=== PATIENT | male | born 1950 | race Two or more races ===

== ENCOUNTER 2019-09-13 19:01 | Emergency (ER) | payer BC ==
[~2019-09-13] VITALS: Ht 180.3 cm; Wt 90.7 kg
[2019-09-13] MEDS ORDERED: ACETAMINOPHEN ES 500 MG TABLET ONE (19:28)
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
[2019-09-13] MEDS ORDERED: ACETAMINOPHEN ES 500 MG TABLET PO ONE (19:30)
--- NOTE | 2019-09-13 19:33 | NUR ---
MD AT BEDSIDE FOR EXTENDED FOCUSED ASSESSMENT WITH SONOGRAPHY FOR TRAUMA.
--- NOTE | 2019-09-13 19:40 | NUR ---
RADIOLOGY AT BEDSIDE TO TAKE PATIENT TO CT.
--- NOTE | 2019-09-13 20:05 | NUR ---
RETURNED FROM CT.
[2019-09-13 21:11] VITALS: BP 111/59
--- NOTE | 2019-09-13 21:11 | NUR ---
Patient discharged to home in stable condition. Written and verbal after care instructions given. Patient verbalizes understanding of instruction.
--- NOTE | 2019-09-13 21:11 | NUR ---
PATIENT'S WOUND CLEANED.
== END 2019-09-13 21:12 | disposition home or self-care (01) ==
LOC: ER 19:03
DX: S00.81XA Abrasion of other part of head, initial encounter (principal); E11.9 Type 2 diabetes mellitus without complications; I10 Essential (primary) hypertension; Z95.818 Presence of other cardiac implants and grafts; Z88.0 Allergy status to penicillin; V49.49XA Driver injured in collision with other motor vehicles in traffic accident, initial encounter; Y93.89 Activity, other specified; Y92.413 State road as the place of occurrence of the external cause; Y99.8 Other external cause status
CPT/HCPCS: 70450; 72110; 72125; 76604; 76705; 93308; 99285; A6403

== ENCOUNTER 2020-01-02 09:41 | Emergency (ER) | payer OTHER ==
[~2020-01-02] VITALS: Ht 170.2 cm; Wt 83.9 kg
[2020-01-02] MEDS ORDERED: HYDROCODONE/APAP 5/325MG TABLET PO ONE (10:00)
[2020-01-02] MEDS ORDERED: HYDROCODONE/APAP 5/325MG TABLET ONE (10:06)
--- NOTE | 2020-01-02 10:30 | NUR ---
Pt encouraged to DBE/splint with movement -able to control activity slowly. Discussed and reiterated plan of care
--- NOTE | 2020-01-02 11:25 | NUR ---
Pt able to move/ambulate slowly. For discharge- Patient discharged to home in stable condition. Written and verbal after care instructions given. Patient verbalizes understanding of instruction.
[2020-01-02 11:26] VITALS: BP 142/71
[2020-01-10] MEDS ORDERED: PANT40TA49 PO (08:11)
[2020-01-10] MEDS ORDERED: RANO10005 PO (08:30)
== END 2020-01-02 11:27 | disposition home or self-care (01) ==
LOC: ER 09:50
DX: S32.038A Other fracture of third lumbar vertebra, initial encounter for closed fracture (principal); I10 Essential (primary) hypertension; E11.9 Type 2 diabetes mellitus without complications; Z95.4 Presence of other heart-valve replacement; Z88.0 Allergy status to penicillin; W18.39XA Other fall on same level, initial encounter; Y93.89 Activity, other specified; Y92.89 Other specified places as the place of occurrence of the external cause; Y99.8 Other external cause status
CPT/HCPCS: 72131-TC

== ENCOUNTER 2020-01-09 17:57 | Inpatient (IN) | payer BC, OTHER ==
[~2020-01-09] VITALS: Ht 177.8 cm; Wt 86.8 kg
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
[2020-01-09] MEDS ORDERED: LORAZEPAM 0.5 MG TABLET ONE (19:29)
[2020-01-09] MEDS ORDERED: LORAZEPAM 0.5 MG TABLET PO ONE (19:30)
--- NOTE | 2020-01-09 19:30 | NUR ---
PT REC'D MEDICATION ORDERED.
--- NOTE | 2020-01-09 20:26 | NUR ---
PT APPEARS CONFUSED. PT STATED THAT HIS PAIN IS STILL IN HIS RT HIP AND RT KNEE. PT WAS ON THE PHONE WITH HIS SISTER, DESHAUN AND HIS ROOMMATE, JUNE. PT ALLOWED BOTH TO BE UPDATED ON HIS CONDITION.
--- NOTE | 2020-01-09 20:27 | NUR ---
CALL DESHAUN, PT'S SISTER, ( PER PT) WITH UPDATES AT CALL JUNE, PT'S ROOMMATE/CAREGIVER, ( PER PT) WITH UPDATES AT
--- NOTE | 2020-01-09 20:45 | NUR ---
CALLING PT'S SISTER, DESHAUN, WITH UPDATE.
--- NOTE | 2020-01-09 20:46 | NUR ---
CALLING PT'S ROOM MATE, JUNE, WITH UPDATE.
--- NOTE | 2020-01-09 20:55 | NUR ---
TURNED IN MOVE SHEET AND CLINICALS
[2020-01-09] MEDS ORDERED: MORPHINE SULFATE INJ 2 MG/ML DISP.SYRIN IV ONE (21:00)
[2020-01-09] MEDS ORDERED: MORPHINE SULFATE INJ 4 MG/ML DISP.SYRIN ONE (21:05)
--- NOTE | 2020-01-09 21:15 | NUR ---
MILL OPERATOR IS AT THE BEDSIDE.
--- NOTE | 2020-01-09 21:15 | NUR ---
ANGEL LUIS CHPROJECT ACCOUNT MANAGER FOR INSURANCE.
[2020-01-09 21:18] LABS: BASOPHILS # (AUTO) 0.1 /CMM (0.0-0.2); BASOPHILS % (AUTO) 0.7 % (0.0-2.0); EOSINOPHILS % (AUTO) 1.7 % (0.0-6.0); HEMATOCRIT 52 % (39-51); HEMOGLOBIN 17.1 g/dL (13.5-17.5); LYMPHOCYTES # (AUTO) 3.3 /CMM (0.8-4.8); LYMPHOCYTES % (AUTO) 30.1 % (20.0-44.0); MEAN CORPUSCULAR HGB CONC 33 g/dl (31.0-36.0); MEAN CORPUSCULAR VOLUME 91 fL (80-96); MONOCYTES # (AUTO) 1.2 /CMM (0.1-1.30); MONOCYTES % (AUTO) 10.6 % (2.0-12.0); NEUTROPHILS # (AUTO) 6.3 /CMM (1.8-8.9); NEUTROPHILS % (AUTO) 56.9 % (43.0-81.0); PLATELET COUNT (AUTO) 256 /CMM (150-450); RED BLOOD CELL COUNT(AUTO) 5.66 MIL/uL (4.5-6.0); WHITE BLOOD COUNT (AUTO) 11.1 K/uL (4.3-11.0)
[2020-01-09 21:37] LABS: BILIRUBIN,DIRECT 0.3 mg/dL (0.0-0.2); BILIRUBIN,TOTAL 1.7 mg/dL (0.2-1.0); CALCIUM, SERUM 9.6 mg/dL (8.5-10.1); POTASSIUM 5.3 mmol/L (3.5-5.1); TOTAL PROTEIN, SERUM 7.6 g/dL (6.4-8.2)
--- NOTE | 2020-01-09 22:08 | NUR ---
MARCELO IS AT THE BEDSIDE ASSISTING PT WITH THE URINAL.
--- NOTE | 2020-01-09 22:32 | NUR ---
PT WAS ON THE PHONE AND TALKING TO HIS ROOMMATE, JUNE. I SPOKE TO JUNE AND GAVE HIM AN UPDATE.
--- NOTE | 2020-01-09 22:36 | NUR ---
BED ASSIGNMENT 310-1
--- NOTE | 2020-01-09 22:38 | NUR ---
CALLING REPORT TO MS NURSE. ANGEL LUIS VILLASEÑOR
--- NOTE | 2020-01-09 22:43 | NUR ---
CALLING PT'S ROOM MATE WITH AN UPDATE.
--- NOTE | 2020-01-09 22:46 | NUR ---
JUNE WILL CALL 3 WEST IN AN HOUR WITH THE PT'S MED LIST. JUNE IS NOT AT HOME AT THIS TIME.
--- NOTE | 2020-01-09 22:49 | NUR ---
CALLING PT'S SISTER, DESHAUN, WITH AN UPDATE
[2020-01-09 22:50] VITALS: BP 125/67
--- NOTE | 2020-01-09 22:50 | NUR ---
MS RN ADMITTING NOTES RECEIVED PT FROM ER VIA [facility] IN STABLE CONDITION. PT A/O X3 WITH PERIODS OF CONFUSION. RESPIRATIONS EVEN AND UNLABORED WITH NO S/S OF ACUTE DISTRESS OR SOB NOTED. NO COMPLAINTS OF PAIN AT THIS TIME. PT NOTED WITH RWRIST #20G PATENT AND INTACT. ORIENTED PT TO ROOM AND STAFF. SAFETY MEASURES IN PLACE WITH BED IN LOWEST LOCKED POSITION WITH SIDE RAILS UP X2. CALL LIGHTS WITHIN REACH. WILL CONTINUE TO MONITOR.
[2020-01-09] MEDS ORDERED: ZOLPIDEM TARTRATE 5 MG TABLET PO PRN (23:00)
[2020-01-09] MEDS ORDERED: Z GUARD REMEDY 2 OZ OINT TP PRN (23:00)
[2020-01-09] MEDS ORDERED: DEXTROSE 50%-WATER 50 ML DISP.SYRIN IV PRN (23:00)
[2020-01-09] MEDS ORDERED: HYDROCODONE/APAP 5/325MG 1 EACH TABLET PO PRN (23:00)
[2020-01-09] MEDS ORDERED: ONDANSETRON HCL/PF 4 MG/2 ML VIAL IVP PRN (23:00)
[2020-01-09] MEDS ORDERED: HYDROCODONE/APAP 10/325MG 1 EA TABLET PO PRN (23:00)
--- NOTE | 2020-01-09 23:00 | NUR ---
MS RN NOTES PT REFUSED TO HAVE WALLET TO BE LOCKED UP AT THIS TIME. WILL CONTINUE TO MONITOR.
[2020-01-10] MEDS: IV NS 0.9% 1,000 ML IV PRN ×2 (00:06→16:53)
[2020-01-10] MEDS: MORPHINE SULFATE INJ 2 MG/ML DISP.SYRIN IV PRN ×3 (00:17→12:57)
[2020-01-10] MEDS: MAG HYDROX/AL HYDROX/SIMETH 30 ML UDC PO PRN (00:51)
--- NOTE | 2020-01-10 01:00 | NUR ---
MS RN NOTES JUNE DID NOT CALL WITH PT'S MED LIST. WILL ENDORSE TO MORNING SHIFT. WILL CONTINUE TO MONITOR.
[2020-01-10 06:46] LABS: BASOPHILS % (AUTO) 0.3 % (0.0-2.0); EOSINOPHILS % (AUTO) 1.7 % (0.0-6.0); HEMATOCRIT 50 % (39-51); HEMOGLOBIN 16.7 g/dL (13.5-17.5); LYMPHOCYTES % (AUTO) 30.7 % (20.0-44.0); MEAN CORPUSCULAR HGB CONC 34 g/dl (31.0-36.0); MEAN CORPUSCULAR VOLUME 91 fL (80-96); MONOCYTES # (AUTO) 1.1 /CMM (0.1-1.30); MONOCYTES % (AUTO) 11.6 % (2.0-12.0); NEUTROPHILS # (AUTO) 5.5 /CMM (1.8-8.9); NEUTROPHILS % (AUTO) 55.7 % (43.0-81.0); PLATELET COUNT (AUTO) 247 /CMM (150-450); RED BLOOD CELL COUNT(AUTO) 5.49 MIL/uL (4.5-6.0); WHITE BLOOD COUNT (AUTO) 9.8 K/uL (4.3-11.0)
--- NOTE | 2020-01-10 06:58 | NUR ---
MS RN NOTES PT IN BED AWAKE AND ABLE TO MAKE NEEDS KNOWN. PT A/O X3 WITH PERIODS OF CONFUSION. RESPIRATIONS EVEN AND UNLABORED WITH NO S/S OF ACUTE DISTRESS OR SOB NOTED THROUGHOUT SHIFT. NO COMPLAINTS OF PAIN AT THIS TIME. PT NOTED WITH RWRIST #20G PATENT AND INTACT. SAFETY MEASURES IN PLACE WITH BED IN LOWEST LOCKED POSITION WITH SIDE RAILS UP X2. CALL LIGHTS WITHIN REACH. WILL ENDORSE TO ONCOMING NURSE FOR HIWOT.
[2020-01-10 06:59] LABS: THYROID STIMULATING HORMONE 0.624 uIU/mL (0.358-3.74)
[2020-01-10 07:02] LABS: CALCIUM, SERUM 8.9 mg/dL (8.5-10.1); MAGNESIUM 1.8 mg/dL (1.8-2.4); PHOSPHORUS 2.3 mg/dL (2.5-4.9); POTASSIUM 4.7 mmol/L (3.5-5.1)
[2020-01-10] MEDS: BLOOD SUGAR DIAGNOSTIC 1 EACH STRIP IN SCH ×4 (07:03→22:09)
[2020-01-10 07:53] LABS: CREATININE, URINE 62.8 MG/DL (30.0-125.0)
[2020-01-10 08:00] VITALS: BP 139/64
[2020-01-10] MEDS ORDERED: METF-442 PO (08:11)
[2020-01-10] MEDS ORDERED: OXYC5TAB3 PO (08:11)
[2020-01-10] MEDS ORDERED: AMLO10TA7 PO (08:11)
[2020-01-10] MEDS ORDERED: TRAZ-252 PO (08:11)
[2020-01-10] MEDS ORDERED: CARV3.122 PO (08:11)
[2020-01-10] MEDS ORDERED: TRAM50TA2 PO (08:11)
[2020-01-10] MEDS ORDERED: ZOLP10TA2 PO (08:11)
[2020-01-10] MEDS ORDERED: APIX5TAB PO (08:11)
[2020-01-10] MEDS ORDERED: LISI40TA4 PO (08:11)
[2020-01-10] MEDS ORDERED: SOTA80TA PO (08:11)
[2020-01-10] MEDS ORDERED: INSU200I4 SQ (08:11)
[2020-01-10] MEDS ORDERED: ATOR10TA PO (08:11)
[2020-01-10] MEDS ORDERED: ALPR0.5T8 PO (08:11)
[2020-01-10] MEDS ORDERED: PANT40TA4 PO (08:11)
[2020-01-10] MEDS ORDERED: GABA-532 PO (08:30)
[2020-01-10] MEDS ORDERED: ISOS60TA4 PO (08:30)
[2020-01-10] MEDS ORDERED: SENN-261 PO (08:30)
[2020-01-10] MEDS ORDERED: RANO10004 PO (08:30)
[2020-01-10] MEDS ORDERED: METH500T7 PO (08:30)
[2020-01-10] MEDS ORDERED: CLOP75TA15 PO (08:30)
[2020-01-10] MEDS ORDERED: HYDR-4354 PO (08:30)
[2020-01-10] MEDS ORDERED: MELA3TAB41 PO (08:30)
[2020-01-10] MEDS ORDERED: GLIM4TAB37 PO (08:30)
[2020-01-10] MEDS ORDERED: ENOXAPARIN SODIUM 40 MG/0.4 ML DISP.SYRIN SQ SCH (09:00)
[2020-01-10] MEDS: PANTOPRAZOLE 40 MG TABLET.DR PO SCH ×2 (10:34→13:30)
[2020-01-10] MEDS ORDERED: NEUTRA PHOS 1 POWD.PACKET PO ONE (11:00)
[2020-01-10] MEDS: INSULIN REGULAR, HUMAN 100 UNIT/ML 3 ML VIAL SQ PRN ×3 (12:45→22:10)
[2020-01-10] MEDS ORDERED: SENNOSIDES 8.6 MG TABLET PO SCH (13:30)
[2020-01-10] MEDS ORDERED: TRAZODONE 50 MG TABLET PO SCH (13:30)
[2020-01-10] MEDS ORDERED: SOTALOL HCL 80 MG TABLET PO SCH (13:30)
[2020-01-10] MEDS ORDERED: Medication Not On Formulary EA (Melatonin 3 MG) PO SCH (13:30)
[2020-01-10] MEDS ORDERED: ALPRAZOLAM 0.5 MG TABLET PO PRN (13:30)
[2020-01-10] MEDS ORDERED: HYDROCODONE/APAP 10/325MG 1 EA TABLET PO PRN (13:30)
[2020-01-10] MEDS: GLIMEPIRIDE 4 MG TABLET PO SCH ×2 (13:30→18:02)
[2020-01-10] MEDS: LISINOPRIL (20MG) 20 MG TABLET PO SCH (14:00)
--- NOTE | 2020-01-10 14:00 | NUR ---
neutra phos given for low phosphorous level.
[2020-01-10] MEDS: METHOCARBAMOL (500MG) 500 MG TABLET PO SCH ×2 (14:48→17:00)
[2020-01-10] MEDS: CLOPIDOGREL BISULFATE 75 MG TABLET PO SCH (14:48)
[2020-01-10] MEDS: CARVEDILOL 3.125 MG TABLET PO SCH ×2 (14:48→16:57)
[2020-01-10] MEDS: GABAPENTIN 100 MG CAPSULE PO SCH ×2 (14:48→17:00)
[2020-01-10] MEDS: AMLODIPINE BESYLATE 10 MG TABLET PO SCH (14:49)
[2020-01-10 16:00] VITALS: BP 137/77
[2020-01-10] MEDS: RANOLAZINE 500 MG TAB.ER.12H PO SCH (17:00)
[2020-01-10] MEDS ORDERED: ISOSORBIDE MONONITRATE 60 MG TAB.SR.24H PO SCH (18:00)
--- NOTE | 2020-01-10 18:00 | NUR ---
med. x 2with morphine and one time with norco for low back pain.at approximately 1600,heart rate low,iv infusing,some meds to be held due to low heart rate,pt. still cont. to ask for pain med,but then doses off to sleep.
[2020-01-10] MEDS: METFORMIN 500 MG TABLET PO SCH (18:03)
[2020-01-10] MEDS: ATORVASTATIN 10 MG TABLET PO SCH (18:03)
--- NOTE | 2020-01-10 19:00 | NUR ---
heart rate at this time ranges between 45-50.
--- NOTE | 2020-01-10 19:05 | NUR ---
MS RN NOTES RECEIVED PT IN BED AWAKE AND ABLE TO MAKE NEEDS KNOWN. PT A/O X3 WITH PERIODS OF CONFUSION. RESPIRATIONS EVEN AND UNLABORED WITH NO S/S OF ACUTE DISTRESS OR SOB NOTED. NO COMPLAINTS OF PAIN AT THIS TIME. PT NOTED WITH RWRIST #20G PATENT AND INTACT INFUSING NS @75CC/HR. SAFETY MEASURES IN PLACE WITH BED IN LOWEST LOCKED POSITION WITH SIDE RAILS UP X2. CALL LIGHTS WITHIN REACH. WILL CONTINUE TO MONITOR.
[2020-01-10 20:00] VITALS: BP 131/68
--- NOTE | 2020-01-10 20:35 | NUR ---
MS RN NOTES PT NOTED WITH DECREASED HR, MD MADE AWARE NO NEW ORDERS, JUST CONTINUE TO MONITOR. PT ALSO NOTED WITH PAIN IN RIGHT KNEE, MD MADE AWARE, NO NEW ORDERS, JUST CONTINUE PAIN MANAGEMENT. WILL CONTINUE TO MONITOR.
[2020-01-10] MEDS: APIXABAN 5 MG TABLET PO SCH (20:38)
[2020-01-10] MEDS: ACETAMINOPHEN 325 MG TABLET PO PRN (22:09)
[2020-01-10] MEDS: SENNOSIDES 8.6 MG TABLET PO SCH (22:09)
[2020-01-10] MEDS: TRAZODONE 50 MG TABLET PO SCH (22:09)
--- NOTE | 2020-01-10 22:56 | NUR ---
MS RN NOTES RECEIVED PT IN BED AWAKE AND ABLE TO MAKE NEEDS KNOWN. PT A/O X3 WITH PERIODS OF CONFUSION. RESPIRATIONS EVEN AND UNLABORED WITH NO S/S OF ACUTE DISTRESS OR SOB NOTED. NO COMPLAINTS OF PAIN AT THIS TIME. PT NOTED WITH RWRIST #20G PATENT AND INTACT INFUSING NS @75CC/HR. SAFETY MEASURES IN PLACE WITH BED IN LOWEST LOCKED POSITION WITH SIDE RAILS UP X2. CALL LIGHTS WITHIN REACH. WILL CONTINUE TO MONITOR. Addendum: 01/10/20 at 2257 by ANGEL SOTO RN WRONG TIME.
[2020-01-11] MEDS: HYDROCODONE/APAP 10/325MG 1 EA TABLET PO PRN ×2 (00:41→20:05)
[2020-01-11] MEDS: IV NS 0.9% 1,000 ML IV PRN ×2 (03:47→17:50)
[2020-01-11] MEDS: INSULIN REGULAR, HUMAN 100 UNIT/ML 3 ML VIAL SQ PRN ×3 (06:31→23:02)
[2020-01-11] MEDS: BLOOD SUGAR DIAGNOSTIC 1 EACH STRIP IN SCH ×4 (06:31→23:03)
[2020-01-11 06:55] LABS: CALCIUM, SERUM 8.6 mg/dL (8.5-10.1); CREATININE 0.9 mg/dL (0.6-1.3); PHOSPHORUS 2.1 mg/dL (2.5-4.9); POTASSIUM 4.3 mmol/L (3.5-5.1)
--- NOTE | 2020-01-11 07:00 | NUR ---
MS RN OPENING NOTES RECEIVED PT AWAKE IN BED AT THIS TIME. A/O X3 . PT ABLE TO MAKE NEEDS KNOWN. NO SOB NOTED. NO S/S OF ANY ACUTE DISTRESS, NO C/O PAIN AT THIS TIME. RESPIRATIONS EVEN AND UNLABORED . IV ACCESS IN RWRIST G#20 INTACT, PATENT AND INFUSING NS @75ML/HR. SAFETY PRECAUTIONS IN PLACE.BED IN LOWEST LOCKED POSITION, HOB ELEVATED TO SEMI FOWLERS POSITION, SIDE RAILS UP X2, BED ALARM ON, CALL LIGHTS WITHIN REACH. WILL CONTINUE TO MONITOR.
[2020-01-11] MEDS: PANTOPRAZOLE 40 MG TABLET.DR PO SCH ×2 (07:30→08:19)
[2020-01-11 08:00] VITALS: BP 132/67
[2020-01-11 09:00] LABS: MAGNESIUM 1.7 mg/dL (1.8-2.4); THYROID STIMULATING HORMONE 0.444 uIU/mL (0.358-3.74); URIC ACID 5.3 mg/dL (2.6-7.2)
[2020-01-11] MEDS: LISINOPRIL (20MG) 20 MG TABLET PO SCH (09:04)
[2020-01-11] MEDS: METFORMIN 500 MG TABLET PO SCH ×2 (09:04→17:17)
[2020-01-11] MEDS: METHOCARBAMOL (500MG) 500 MG TABLET PO SCH ×2 (09:04→12:47)
[2020-01-11] MEDS: CLOPIDOGREL BISULFATE 75 MG TABLET PO SCH (09:05)
[2020-01-11] MEDS: GABAPENTIN 100 MG CAPSULE PO SCH ×3 (09:05→17:17)
[2020-01-11] MEDS: AMLODIPINE BESYLATE 10 MG TABLET PO SCH (09:05)
[2020-01-11] MEDS: GLIMEPIRIDE 4 MG TABLET PO SCH ×2 (09:05→17:17)
[2020-01-11] MEDS: MORPHINE SULFATE INJ 2 MG/ML DISP.SYRIN IV PRN (09:06)
[2020-01-11] MEDS: CARVEDILOL 3.125 MG TABLET PO SCH ×2 (09:06→17:18)
[2020-01-11] MEDS: APIXABAN 5 MG TABLET PO SCH ×2 (09:08→17:19)
[2020-01-11] MEDS: RANOLAZINE 500 MG TAB.ER.12H PO SCH ×2 (09:55→17:21)
--- NOTE | 2020-01-11 11:00 | NUR ---
DOCTOR BAIN REQUESTED TO GET CONSULT FROM DOCTOR LIMON AT THIS TIME. ORDERS CARRIED OUT. UNABLE TO REACH DOCTOR LIMON BY PHONE AT THIS TIME. WILL FOLLOW UP AND CONTINUE TO MONITOR
[2020-01-11] MEDS: MAG HYDROX/AL HYDROX/SIMETH 30 ML UDC PO PRN (11:11)
--- NOTE | 2020-01-11 11:11 | NUR ---
PT C/O OF BLOATING. ABD ASSESSED, NON TENDER AND ACTIVE BOWEL SOUNDS PRESENT. MAALOX SUSP UDC 30ML PO Q6HRS PRN ADMINISTERED. WILL CONTINUE TO MONITOR
[2020-01-11] MEDS ORDERED: K PHOS NEUTRAL 250 MG TABLET PO ONE (12:00)
--- NOTE | 2020-01-11 12:30 | NUR ---
DOCTOR BAIN REQUESTED TO GET NEUROLOGY EVAL CONSULT FROM DOCTOR LIMON. ORDERS CARRIED OUT. UNABLE TO REACH DOCTOR LIMON BY PHONE AT THIS TIME. LINDSEY, CHARGE NURSE AND DOCTOR BAIN MADE AWARE. WILL CONTINUE TO FOLLOW UP AND CONTINUE WITH PLAN OF CARE
[2020-01-11 16:00] VITALS: BP 109/66
--- NOTE | 2020-01-11 17:50 | NUR ---
PER DOCTOR BAIN, DO A BLADDER SCAN TO CHECK POSTVOID RESIDUAL. PATIENT VOIDED 200ML OUTPUT, POSTVOID BLADDER SCAN PERFOREMED PER ORDER, AND SCAN SHOWS 69ML. WILL CONTINUE TO MONITOR
[2020-01-11] MEDS: ATORVASTATIN 10 MG TABLET PO SCH (18:26)
[2020-01-11] MEDS: ISOSORBIDE MONONITRATE (30MG) 30 MG TAB.SR.24H PO SCH (18:26)
--- NOTE | 2020-01-11 18:46 | NUR ---
MS RN CLOSING NOTES PT AWAKE IN BED AND EATING AT THIS TIME. A/O X3 . PT REMAINED STABLE THROUGHOUT SHIFT. ALL CARE, NEEDS, TREATMENT AND MEDICATIONS ADMINISTERED ANTICIPATED PER ODER. SAFETY PRECAUTIONS IN PLACE. BED IN LOWEST LOCKED POSITION, HOB ELEVATED TO SEMI FOWLERS POSITION, SIDE RAILS UP X2, BED ALARM ON, CALL LIGHTS WITHIN REACH. WILL ENDORSE TO FULL ROLL INSPECTOR NURSE FOR HIWOT
--- NOTE | 2020-01-11 19:30 | NUR ---
MS RN PM OPENEING NOTES BEDSIDE REPORT RECIEVED FROM IMMMACULATE RN. PT AWAKE IN BED IN NO APPARENT DISTRESS. A/O X3 WITH HX OF FORGETFULNESS. PT ASKING IF WE CAN CALL SOMEONE TO HELP HIM WRITE A COMPOSITION. REORIENTED TO ENVIRONMENT AND POC. SAFETY PRECAUTIONS IN PLACE. BED IN LOWEST LOCKED POSITION, HOB ELEVATED TO SEMI FOWLERS POSITION, SIDE RAILS UP X2, BED ALARM ON, CALL LIGHTS WITHIN REACH. PT VERBALIZED UNDERSTANDING TO CALL FOR ASSISTANCE IF NEEDED. WILL CONT TO MONITOR.
[2020-01-11 20:00] VITALS: BP 104/63
[2020-01-11] MEDS: MAGNESIUM HYDROXIDE 30 ML UDC PO PRN (20:04)
[2020-01-11] MEDS: SENNOSIDES 8.6 MG TABLET PO SCH (23:02)
[2020-01-11] MEDS: TRAMADOL HCL 50 MG TABLET PO PRN (23:03)
[2020-01-11] MEDS: TRAZODONE 50 MG TABLET PO SCH (23:03)
[2020-01-12] MEDS: HYDROCODONE/APAP 10/325MG 1 EA TABLET PO PRN ×2 (00:07→12:35)
[2020-01-12] MEDS: ZOLPIDEM TARTRATE 10 MG TABLET PO PRN ×2 (01:28→21:47)
[2020-01-12] MEDS: BLOOD SUGAR DIAGNOSTIC 1 EACH STRIP IN SCH ×4 (06:13→21:12)
[2020-01-12] MEDS: IV NS 0.9% 1,000 ML IV PRN ×2 (06:18→21:46)
--- NOTE | 2020-01-12 06:27 | NUR ---
MS RN PM CLOSING NOTES PT AWAKENED TO VOICE IN BED IN NO APPARENT DISTRESS. REPORTED SOME GOOD SLEEP LAST NIGHT. BS CHECKED AND IS 92. A/O X3 WITH HX OF FORGETFULNESS. DENIES PAIN AT THIS TIME. SAFETY PRECAUTIONS IN PLACE. BED IN LOWEST LOCKED POSITION, HOB ELEVATED TO SEMI FOWLERS POSITION, SIDE RAILS UP X2, BED ALARM ON, CALL LIGHTS WITHIN REACH. PT VERBALIZED UNDERSTANDING TO CALL FOR ASSISTANCE IF NEEDED.
--- NOTE | 2020-01-12 07:20 | NUR ---
RN OPENING NOTES RECEIVED PATIENT IN BED AWAKE, A/OX4. NOT IN ANY FORM OF DISTRESS. NO SOB. DENIED ANY PAIN AT THIS TIME. IV ACCESS INTACT AND PATENT. KEPT PATIENT SAFE AND COMFORTABLE. BED IN LOW/LOCKED PSOTIION, SIDERAILS UPX2, CALL LIGHT IN REACH. WILL CONT T O MONITOR ACCORDINGLY.
[2020-01-12 07:44] LABS: CALCIUM, SERUM 8.9 mg/dL (8.5-10.1); PHOSPHORUS 2.8 mg/dL (2.5-4.9)
[2020-01-12 08:00] VITALS: BP 108/51
[2020-01-12] MEDS: GABAPENTIN 100 MG CAPSULE PO SCH ×3 (08:34→16:38)
[2020-01-12] MEDS: GLIMEPIRIDE 4 MG TABLET PO SCH ×2 (08:34→16:38)
[2020-01-12] MEDS: METFORMIN 500 MG TABLET PO SCH ×2 (08:34→16:38)
[2020-01-12] MEDS: PANTOPRAZOLE 40 MG TABLET.DR PO SCH (08:34)
[2020-01-12] MEDS: oxyCODONE IR immediate release 5 MG PO PRN ×2 (08:36→16:37)
[2020-01-12] MEDS: CLOPIDOGREL BISULFATE 75 MG TABLET PO SCH (08:36)
[2020-01-12] MEDS: APIXABAN 5 MG TABLET PO SCH ×2 (08:37→16:36)
[2020-01-12] MEDS: RANOLAZINE 500 MG TAB.ER.12H PO SCH ×2 (08:40→16:38)
[2020-01-12] MEDS: CARVEDILOL 3.125 MG TABLET PO SCH ×2 (08:57→16:39)
[2020-01-12] MEDS: LISINOPRIL (20MG) 20 MG TABLET PO SCH (08:59)
[2020-01-12] MEDS: AMLODIPINE BESYLATE 10 MG TABLET PO SCH (08:59)
[2020-01-12] MEDS ORDERED: NAPROXEN 375 MG TABLET.DR PO PRN (09:30)
[2020-01-12] MEDS: MORPHINE SULFATE INJ 2 MG/ML DISP.SYRIN IV PRN ×2 (10:31→17:47)
[2020-01-12 16:00] VITALS: BP 119/60
[2020-01-12] MEDS: INSULIN REGULAR, HUMAN 100 UNIT/ML 3 ML VIAL SQ PRN (17:41)
[2020-01-12] MEDS: ISOSORBIDE MONONITRATE (30MG) 30 MG TAB.SR.24H PO SCH (17:49)
[2020-01-12] MEDS: ATORVASTATIN 10 MG TABLET PO SCH (17:49)
--- NOTE | 2020-01-12 18:48 | NUR ---
RN CLOSING NOTES PATIENT IN STABLE CONDITION. ALL NEEDS ATTENDED AND PROVIDED. ALL DUE MEDS GIVEN ORDERED. ASSISTED WITH ADLS. KEPT PATIENT SAFE AND COMFORTABLE. BED IN LOW/LOCKED POSITION. SIDERAILS UPX2, CALL LIGHT IN REACH. WILL ENDORSE TO NIGHT RN ACCORDINGLY.
--- NOTE | 2020-01-12 19:36 | NUR ---
MS RN OPENING NOTES PATIENT RECEIVED RESTING IN BED A/O X 3. STABLE ON RA WITH BREATHING EVEN AND UNLABORED, NO SOB NOTED. NO SIGNS OF ACUTE DISTRESS. SLIGHT COMPLAINTS OF PAIN OR DISCOMFORT. IV LOCATED ON R WRIST #20 RUNNING NS @ 75 ML/HR. SAFETY PRECAUTIONS IN PLACE WITH BED IN LOWEST POSITION, CALL LIGHT WITHIN REACH, BREAKS ON, SIDE RAILS UP. WILL CONTINUE TO MONITOR THROUGHOUT THE NIGHT.
[2020-01-12 20:00] VITALS: BP 120/88
[2020-01-12 20:37] VITALS: BP 120/66
[2020-01-12] MEDS: TRAZODONE 50 MG TABLET PO SCH (21:05)
[2020-01-12] MEDS: SENNOSIDES 8.6 MG TABLET PO SCH (21:05)
[2020-01-12] MEDS: ACETAMINOPHEN 325 MG TABLET PO PRN (23:41)
--- NOTE | 2020-01-12 23:46 | NUR ---
MS HEIN NOTES PT REFUSED WOUND CARE, WANTS TO BE "LEFT ALONE". WILL CONTINUE TO MONITOR. Addendum: 01/13/20 at 0715 by DIMITRIS ADAIR RN WRONG PATIENT
[2020-01-13] MEDS: BLOOD SUGAR DIAGNOSTIC 1 EACH STRIP IN SCH ×4 (06:36→22:12)
[2020-01-13] MEDS: HYDROCODONE/APAP 10/325MG 1 EA TABLET PO PRN (06:42)
--- NOTE | 2020-01-13 06:48 | NUR ---
MS RN NOTES FSBS 67, GAVE PATIENT ORANGE JUICE. WILL CONTINUE TO MONITOR. NO SIGNS OF ACUTE DISTRESS, BASELINE MENTAL STATUS.
--- NOTE | 2020-01-13 06:50 | NUR ---
MS RN CLOSING NOTES PATIENT RESTING IN BED A/O X 3. STABLE ON RA WITH BREATHING EVEN AND UNLABORED, NO SOB NOTED. NO SIGNS OF ACUTE DISTRESS. SLIGHT COMPLAINTS OF PAIN OR DISCOMFORT. IV LOCATED ON R HAND #22 RUNNING NS @ 75 ML/HR. SAFETY PRECAUTIONS IN PLACE WITH BED IN LOWEST POSITION, CALL LIGHT WITHIN REACH, BREAKS ON, SIDE RAILS UP. ALL NEEDS ATTENDED TO. WILL ENDORSE TO ONCOMING SHIFT ABOUT HIWOT.
--- NOTE | 2020-01-13 07:30 | NUR ---
RN OPENING NOTES RECEIVED PATIENT IN BED AWAKE, A/OX4. NOT IN ANY FORM OF DISTRESS. NO SOB. DENIED ANY PAIN AT THIS TIME. IV ACCESS INTACT AND PATENT. KEPT PATIENT SAFE AND COMFORTABLE. BED IN LOW/LOCKED PSOTIION, SIDERAILS UPX2, CALL LIGHT IN REACH. WILL CONT TO MONITOR ACCORDINGLY.
[2020-01-13 08:00] VITALS: BP 127/66
[2020-01-13] MEDS: PANTOPRAZOLE 40 MG TABLET.DR PO SCH (08:38)
[2020-01-13] MEDS: AMLODIPINE BESYLATE 10 MG TABLET PO SCH (08:38)
[2020-01-13] MEDS: CLOPIDOGREL BISULFATE 75 MG TABLET PO SCH (08:39)
[2020-01-13] MEDS: oxyCODONE IR immediate release 5 MG PO PRN ×2 (08:39→20:26)
[2020-01-13] MEDS: METFORMIN 500 MG TABLET PO SCH ×2 (08:40→16:14)
[2020-01-13] MEDS: GLIMEPIRIDE 4 MG TABLET PO SCH ×2 (08:40→16:13)
[2020-01-13] MEDS: CARVEDILOL 3.125 MG TABLET PO SCH ×2 (08:41→16:16)
[2020-01-13] MEDS: APIXABAN 5 MG TABLET PO SCH ×2 (08:43→16:17)
[2020-01-13] MEDS: LISINOPRIL (20MG) 20 MG TABLET PO SCH (08:44)
[2020-01-13] MEDS: RANOLAZINE 500 MG TAB.ER.12H PO SCH ×2 (08:45→16:22)
[2020-01-13] MEDS: GABAPENTIN 100 MG CAPSULE PO SCH ×3 (08:46→16:14)
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
[2020-01-13] MEDS: TRAMADOL HCL 50 MG TABLET PO PRN (11:24)
[2020-01-13] MEDS: INSULIN REGULAR, HUMAN 100 UNIT/ML 3 ML VIAL SQ PRN ×2 (12:01→21:45)
[2020-01-13] MEDS: MORPHINE SULFATE INJ 2 MG/ML DISP.SYRIN IV PRN ×2 (12:34→22:45)
--- NOTE | 2020-01-13 13:33 | NUR ---
RN NOTES FOLLOWED UP WITH DR PAUL (PAIN MGT). PER MD, HE WILL SEE THE PATIENT TODAY
--- NOTE | 2020-01-13 15:47 | NUR ---
BACK BRACE ORDERED FROM [facility]. SPOKE WITH PRIMITIVO AND VERIFIED THAT THE FAXED ORDER WAS RECEIVED. PER PRIMITIVO IT WILL BE DELIVER TODAY OR TOMORROW.
[2020-01-13 16:00] VITALS: BP 110/81
[2020-01-13] MEDS: ACETAMINOPHEN 325 MG TABLET PO PRN (16:15)
--- NOTE | 2020-01-13 16:47 | NUR ---
back brace delivered to patient. patient wearing it, patient tolerating well. will cont to monitor
--- NOTE | 2020-01-13 17:00 | NUR ---
rn notes Patient back brace off since he's going to back to bed now from the chair. per patient, he was instructed to wear the brace except when he is in bed. Patient back brace at bedside.
[2020-01-13] MEDS: ATORVASTATIN 10 MG TABLET PO SCH (17:16)
[2020-01-13] MEDS: ISOSORBIDE MONONITRATE (30MG) 30 MG TAB.SR.24H PO SCH (17:18)
[2020-01-13] MEDS: METHOCARBAMOL (500MG) 500 MG TABLET PO SCH (17:49)
[2020-01-13] MEDS: IV NS 0.9% 1,000 ML IV PRN (18:00)
[2020-01-13] MEDS: ACETAMINOPHEN 325 MG TABLET PO SCH (18:00)
--- NOTE | 2020-01-13 19:25 | NUR ---
RN CLOSING NOTES PATIENT IN STABLE CONDITION. ALL NEEDS ATTENDED AND PROVIDED. ALL DUE MEDS GIVEN ORDERED. ASSISTED WITH ADLS. KEPT PATIENT SAFE AND COMFORTABLE. BED IN LOW/LOCKED POSITION. SIDERAILS UPX2, CALL LIGHT IN REACH. ENDORSED TO NIGHT RN ACCORDINGLY.
--- NOTE | 2020-01-13 19:33 | NUR ---
MS RN OPENING NOTES PATIENT RECEIVED RESTING IN BED A/O X 3. STABLE ON RA WITH BREATHING EVEN AND UNLABORED, NO SOB NOTED. NO SIGNS OF ACUTE DISTRESS. SLIGHT COMPLAINTS OF PAIN OR DISCOMFORT. IV LOCATED ON R WRIST #20 RUNNING NS @ 75 ML/HR. BACK BRACE AT BEDSIDE, PATIENT DOES NOT WANT TO WEAR IT AT THE MOMENT. SAFETY PRECAUTIONS IN PLACE WITH BED IN LOWEST POSITION, CALL LIGHT WITHIN REACH, BREAKS ON, SIDE RAILS UP. WILL CONTINUE TO MONITOR THROUGHOUT THE NIGHT.
[2020-01-13 20:00] VITALS: BP 126/70
[2020-01-13] MEDS: TRAZODONE 50 MG TABLET PO SCH (21:36)
[2020-01-13] MEDS: SENNOSIDES 8.6 MG TABLET PO SCH (21:37)
[2020-01-14] MEDS: oxyCODONE IR immediate release 5 MG PO PRN ×4 (00:06→19:06)
[2020-01-14] MEDS: ZOLPIDEM TARTRATE 10 MG TABLET PO PRN ×2 (00:51→23:25)
[2020-01-14] MEDS: ACETAMINOPHEN 325 MG TABLET PO SCH ×3 (02:00→17:17)
--- NOTE | 2020-01-14 02:12 | NUR ---
MS RN NOTES DID NOT ADMINISTER SCHEDULED 0200 ACETAMINOPHEN, PATIENT SLEEPING. PATIENT STRUGGLING TO FALL ASLEEP THROUGHOUT THE NIGHT, DID NOT WANT TO BE BOTHERED WHEN SLEEPING.
--- NOTE | 2020-01-14 06:44 | NUR ---
MS RN CLOSING NOTES PATIENT RESTING IN BED A/O X 3. STABLE ON RA WITH BREATHING EVEN AND UNLABORED, NO SOB NOTED. NO SIGNS OF ACUTE DISTRESS. SLIGHT COMPLAINTS OF PAIN OR DISCOMFORT. IV LOCATED ON RHAND #22 RUNNING NS @ 75 ML/HR. SAFETY PRECAUTIONS IN PLACE WITH BED IN LOWEST POSITION, CALL LIGHT WITHIN REACH, BREAKS ON, SIDE RAILS UP. ALL NEEDS ATTENDED TO. PAIN MANAGED THROUGHOUT THE NIGHT. WILL ENDORSE TO ONCOMING SHIFT ABOUT HIWOT.
[2020-01-14] MEDS: BLOOD SUGAR DIAGNOSTIC 1 EACH STRIP IN SCH ×4 (06:50→22:39)
--- NOTE | 2020-01-14 06:50 | NUR ---
MS RN NOTES FSBS 68. ADMINISTERED 2 ORANGE JUICE.
--- NOTE | 2020-01-14 07:30 | NUR ---
MS/RN - Assessment Patient is awake, A/O x 4, no complaints overnight, here for severe back pain/compression fracture L3, reports mild pain on BLE/lower back but refused medication for now, stable on room air, afebrile. Skin on BLE is warm to touch, denies numbness or tingling sensation, back brace at bedside. IVF NS at 75 ml/hr infusing well on the right hand with no signs of infiltration. No labs today. Fall precautions maintained. Will continue with current plan of care.
[2020-01-14] MEDS: PANTOPRAZOLE 40 MG TABLET.DR PO SCH (07:50)
[2020-01-14] MEDS: APIXABAN 5 MG TABLET PO SCH ×2 (08:11→17:17)
[2020-01-14] MEDS: LISINOPRIL (20MG) 20 MG TABLET PO SCH (08:12)
[2020-01-14] MEDS: METFORMIN 500 MG TABLET PO SCH ×2 (08:12→17:13)
[2020-01-14] MEDS: CLOPIDOGREL BISULFATE 75 MG TABLET PO SCH (08:12)
[2020-01-14] MEDS: GABAPENTIN 100 MG CAPSULE PO SCH ×3 (08:12→17:14)
[2020-01-14] MEDS: METHOCARBAMOL (500MG) 500 MG TABLET PO SCH ×3 (08:12→17:11)
[2020-01-14] MEDS: GLIMEPIRIDE 4 MG TABLET PO SCH ×2 (08:12→17:15)
[2020-01-14] MEDS: AMLODIPINE BESYLATE 10 MG TABLET PO SCH (08:12)
[2020-01-14] MEDS: RANOLAZINE 500 MG TAB.ER.12H PO SCH ×2 (08:14→17:22)
[2020-01-14] MEDS: CARVEDILOL 3.125 MG TABLET PO SCH ×2 (08:14→17:12)
[2020-01-14 08:18] VITALS: BP 129/86
[2020-01-14 09:30] VITALS: BP 129/86
[2020-01-14 11:30] LABS: ALBUMIN 3.5 g/dL (3.4-5.0); CALCIUM, SERUM 9.5 mg/dL (8.5-10.1); CREATININE 0.9 mg/dL (0.6-1.3); MAGNESIUM 1.7 mg/dL (1.8-2.4); PHOSPHORUS 3.3 mg/dL (2.5-4.9); POTASSIUM 4.4 mmol/L (3.5-5.1); TOTAL PROTEIN, SERUM 6.9 g/dL (6.4-8.2)
[2020-01-14 12:03] LABS: BASOPHILS # (AUTO) 0.1 /CMM (0.0-0.2); BASOPHILS % (AUTO) 0.8 % (0.0-2.0); EOSINOPHILS % (AUTO) 3.2 % (0.0-6.0); HEMATOCRIT 45 % (39-51); HEMOGLOBIN 14.9 g/dL (13.5-17.5); LYMPHOCYTES # (AUTO) 2.7 /CMM (0.8-4.8); LYMPHOCYTES % (AUTO) 28.8 % (20.0-44.0); MEAN CORPUSCULAR HGB CONC 33 g/dl (31.0-36.0); MEAN CORPUSCULAR VOLUME 91 fL (80-96); NEUTROPHILS # (AUTO) 5.5 /CMM (1.8-8.9); NEUTROPHILS % (AUTO) 57.2 % (43.0-81.0); PLATELET COUNT (AUTO) 208 /CMM (150-450); RED BLOOD CELL COUNT(AUTO) 4.93 MIL/uL (4.5-6.0); WHITE BLOOD COUNT (AUTO) 9.5 K/uL (4.3-11.0)
[2020-01-14] MEDS: INSULIN REGULAR, HUMAN 100 UNIT/ML 3 ML VIAL SQ PRN ×3 (12:44→22:41)
--- NOTE | 2020-01-14 13:00 | NUR ---
MS/RN - Specimen Specimen was sent to the lab for Covid-19 testing.
[2020-01-14 16:07] VITALS: BP 112/86
[2020-01-14] MEDS: ATORVASTATIN 10 MG TABLET PO SCH (18:16)
[2020-01-14] MEDS: ISOSORBIDE MONONITRATE (30MG) 30 MG TAB.SR.24H PO SCH (18:17)
--- NOTE | 2020-01-14 18:24 | NUR ---
Patient A/Ox3. VSS. Bilateral breath sounds even, unlabored, on room air. Heart sounds S1S2, no JVD. Pulses 2+. No SOB or signs of distress. Pt denies N/V/C. Patient complains of back pain when getting up to use BSC. Last pain medication given at 1244. IV right hand 22g saline lock. Bed low, call light within reach, wheels locked, side rails up x2.
--- NOTE | 2020-01-14 19:00 | NUR ---
RN MS NOTES RECEIVED PATIENT IN BED AWAKE ALERT AND ORIENTED X, 3 NOTED WITH PERIODS OF FORGETFULNESS, ON ROOM AIRE RESPIRATIONS EVEN AND UNLABORED WITH EQUAL RISE AND FALL OF CHEST, DENIES PAIN AT THIS TIME, IV SITE TO RIGHT FA #22 G INTACT AND PATENT, NO REDNESS, NO INFILTRATION PRESENT, SL. BSC AND URINAL WITHIN REACH, SAFETY PRECAUTIONS IN PLACE, LOW BED AND LOCKED, SAFETY PRECAUTIONS IN PLACE, ORIENTED TO STAFF AND CALL LIGHT AND KEPT WITHIN REACH, REMAINS COMFORTABLE AT THIS TIME ALL NEEDS ATTENDED.
[2020-01-14 20:00] VITALS: BP 121/58
[2020-01-14] MEDS: MORPHINE SULFATE INJ 2 MG/ML DISP.SYRIN IV PRN (21:15)
--- NOTE | 2020-01-14 21:15 | NUR ---
RN MS NOTES PATIENT COMPLAINED OF PAIN TO BACK 02/22 REQUESTED FOR MORPHINE VS WNL MORPHINE PEN GIVEN ORDERED, WILL CONTINUE TO MONITOR FOR EFFECTIVENESS
--- NOTE | 2020-01-14 22:15 | NUR ---
RN MS NOTES PATIENT IN BED APPEARS COMFORTABLE AT THIS TIME, MORPHINE WAS EFFECTIVE, IV SITE TO RIGHT FA#22 G INTACT AND PATENT, NO REDNESS NO INFILTRATION, ALL NEEDS WERE ATTENDED , GAVE REPORT TO JAYLEN RN FOR CONTINUITY OF CARE, PATIENT IS AWARE.REMAINS STABLE AT THIS TIME.
[2020-01-14] MEDS: TRAZODONE 50 MG TABLET PO SCH (22:33)
[2020-01-14] MEDS: SENNOSIDES 8.6 MG TABLET PO SCH (22:33)
--- NOTE | 2020-01-14 22:47 | NUR ---
RN NOTE 2200 BLOOD SUGAR ACCUCHECK 65. ORANGE JUICE GIVEN.
[2020-01-15] MEDS: oxyCODONE IR immediate release 5 MG PO PRN ×4 (00:40→23:18)
[2020-01-15] MEDS: ACETAMINOPHEN 325 MG TABLET PO SCH ×3 (01:52→17:15)
--- NOTE | 2020-01-15 06:43 | NUR ---
RN MS CLOSING NOTE PATIENT IN BED ASLEEP IN SEMI-FOWLERS POSITION. APPEARS COMFORTABLE AT THIS TIME, IV SITE TO RIGHT FA #22 PATENT INTACT AND FLUSHING WELL, NO REDNESS OR INFILTRATION, SIDE RAILS UP X 2, CALL LIGHT WITHIN REACH, SAFETY MEASURE IN PLACE, ENDORSED TO AM RN FOR HIWOT
[2020-01-15] MEDS: BLOOD SUGAR DIAGNOSTIC 1 EACH STRIP IN SCH ×4 (07:35→21:51)
--- NOTE | 2020-01-15 07:37 | NUR ---
MS RN OPENING NOTES Pt pleasantly awake in bed. AO x4. Heart sounds S1s2. Breath sounds clear, even, unlabored. Pt denies F/N/V. No SOB or signs of distress. No JVD. Pedal and brachial pulses 2+. No edema noted. Morning blood sugar 80. Bed low, call light within reach, wheels locked, side rails up x2.
[2020-01-15 08:00] VITALS: BP 110/64
[2020-01-15] MEDS: METHOCARBAMOL (500MG) 500 MG TABLET PO SCH ×3 (08:06→16:09)
[2020-01-15] MEDS: GLIMEPIRIDE 4 MG TABLET PO SCH ×2 (08:09→16:09)
[2020-01-15] MEDS: GABAPENTIN 100 MG CAPSULE PO SCH ×3 (08:20→16:10)
[2020-01-15] MEDS: AMLODIPINE BESYLATE 10 MG TABLET PO SCH (08:20)
[2020-01-15] MEDS: METFORMIN 500 MG TABLET PO SCH ×2 (08:20→16:09)
[2020-01-15] MEDS: LISINOPRIL (20MG) 20 MG TABLET PO SCH (08:21)
[2020-01-15] MEDS: CLOPIDOGREL BISULFATE 75 MG TABLET PO SCH (08:22)
[2020-01-15] MEDS: PANTOPRAZOLE 40 MG TABLET.DR PO SCH (08:22)
[2020-01-15] MEDS: APIXABAN 5 MG TABLET PO SCH ×2 (08:30→16:07)
[2020-01-15] MEDS: CARVEDILOL 3.125 MG TABLET PO SCH ×2 (08:30→16:12)
[2020-01-15] MEDS: RANOLAZINE 500 MG TAB.ER.12H PO SCH ×2 (08:34→16:11)
[2020-01-15 10:02] VITALS: BP 110/64
[2020-01-15] MEDS: INSULIN REGULAR, HUMAN 100 UNIT/ML 3 ML VIAL SQ PRN (12:01)
[2020-01-15 16:00] VITALS: BP 106/66
[2020-01-15] MEDS: ISOSORBIDE MONONITRATE (30MG) 30 MG TAB.SR.24H PO SCH (17:16)
[2020-01-15] MEDS: ATORVASTATIN 10 MG TABLET PO SCH (17:17)
--- NOTE | 2020-01-15 18:15 | NUR ---
MS RN CLOSING NOTE Patient is awake in bed, A/O x4. No signs of acute distress or SOB. Breathing even, clear, and unlabored. Patient c/o of low back pain radiating down right leg. Last pain medication given @ 1035. IV site right FA 22g SL. COVID result pending 1814. Bed in low position, wheels locked, side rails up x2, call light within reach.
--- NOTE | 2020-01-15 19:30 | NUR ---
MS RN NOTES RECEIVED ON BED A/O X3,BREATHING REGULAR,NOT IN ANY FORM OF DISTRESS,SALINE LOCK RFA INTACT AND PATENT.FALL RISK DUE TO COMPRESSION FRACTURE ON L3.BED ALARM TRIGGERED.ISOLATION PRECAUTION PENDING COVID TEST.CALL LIGHT IN REACH,NEEDS ANTICIPATED.
[2020-01-15 20:00] VITALS: BP 119/74
[2020-01-15] MEDS: TRAZODONE 50 MG TABLET PO SCH (22:00)
[2020-01-15] MEDS: SENNOSIDES 8.6 MG TABLET PO SCH (22:00)
--- NOTE | 2020-01-15 22:00 | NUR ---
MS RN NOTES ACCU-CHECK BLOOD SUGAR CHECK 78,NO INSULIN COVERAGE. DUE PO MEDS ADMINISTERED WITH APPLE JUICE.
--- NOTE | 2020-01-15 22:15 | NUR ---
MS RN NOTES SIT ON EDGE OF BED ASSISTED BY BHARTA MEYER.FALL PRECAUTION OBSERVED
--- NOTE | 2020-01-15 23:18 | NUR ---
MS RN NOTES PAIN MANAGEMENT C/O MID BACK PAIN,MEDICATED WITH OXY IR 5MG PO FOR PAIN SCALE 6/10.
[2020-01-16] MEDS: ZOLPIDEM TARTRATE 10 MG TABLET PO PRN ×2 (00:40→23:25)
--- NOTE | 2020-01-16 00:40 | NUR ---
MS RN NOTES C/O INSOMNIA,AMBIEN 10MG PO GIVEN ORDERED PRN FOR SLEEP.
[2020-01-16] MEDS: ACETAMINOPHEN 325 MG TABLET PO SCH ×3 (02:06→17:05)
--- NOTE | 2020-01-16 06:31 | NUR ---
MS RN NOTES FELL ASLEEP WITH AMBIEN LATE,PAIN MANAGEMENT EFFECTIVE,SIT UP WITH ASSIST.REFUSED BLOOD SUGAR CHECK EARLY THIS MORNING.POSSIBLE D/C TO SNF FOR MOBILITY,AWAITING COVID TEST RESULT.IN NO ACUTE DISTRESS.
[2020-01-16] MEDS: PANTOPRAZOLE 40 MG TABLET.DR PO SCH (07:56)
[2020-01-16] MEDS: BLOOD SUGAR DIAGNOSTIC 1 EACH STRIP IN SCH ×4 (07:56→21:33)
--- NOTE | 2020-01-16 08:00 | NUR ---
MS RN OPENING NOTE Pt awake in bed, A/O x3. Pain level 7 in low back. Pain medication given accordingly. Breath sounds clear, even, and unlabored. Heart sounds S1S2 noted. Hypoactive bowel sounds. Pt states he had no bowel movement for a few days. Pedal pulse 2+. No edema. Skin warm, pink, dry. Cap refill <2 seconds. Bed in low position, wheels locked, side rails up x2, call light within reach.
[2020-01-16] MEDS: METHOCARBAMOL (500MG) 500 MG TABLET PO SCH ×3 (08:07→16:07)
[2020-01-16] MEDS: AMLODIPINE BESYLATE 10 MG TABLET PO SCH (08:07)
[2020-01-16] MEDS: CLOPIDOGREL BISULFATE 75 MG TABLET PO SCH (08:08)
[2020-01-16] MEDS: GABAPENTIN 100 MG CAPSULE PO SCH ×3 (08:08→16:07)
[2020-01-16] MEDS: METFORMIN 500 MG TABLET PO SCH ×2 (08:09→16:07)
[2020-01-16] MEDS: GLIMEPIRIDE 4 MG TABLET PO SCH ×2 (08:09→16:09)
[2020-01-16] MEDS: LISINOPRIL (20MG) 20 MG TABLET PO SCH (08:10)
[2020-01-16] MEDS: RANOLAZINE 500 MG TAB.ER.12H PO SCH ×2 (08:11→16:14)
[2020-01-16 08:12] VITALS: BP 113/56
[2020-01-16] MEDS: CARVEDILOL 3.125 MG TABLET PO SCH ×3 (08:12→16:33)
[2020-01-16] MEDS: APIXABAN 5 MG TABLET PO SCH ×2 (08:14→16:08)
[2020-01-16] MEDS: oxyCODONE IR immediate release 5 MG PO PRN ×4 (09:13→23:26)
[2020-01-16 09:29] VITALS: BP 113/56
[2020-01-16] MEDS: INSULIN REGULAR, HUMAN 100 UNIT/ML 3 ML VIAL SQ PRN ×2 (12:26→21:36)
[2020-01-16] MEDS ORDERED: MAGNESIUM HYDROXIDE 30 ML UDC PO ONE (15:00)
--- NOTE | 2020-01-16 15:06 | NUR ---
MS RN NOTES Dr Zayas is made aware of patient complaining of being constipated. Received new order of mil of magnesia po x1. The order is read back, verified. Noted and carried out.
[2020-01-16 16:14] VITALS: BP 120/60
--- NOTE | 2020-01-16 16:33 | NUR ---
MS/RN NOTE THE PATIENT`S COREG 3.125 PO DUE AT AT THIS TIME IS HELD DUE TO HEART RATE OF 48.
[2020-01-16] MEDS: ATORVASTATIN 10 MG TABLET PO SCH (17:05)
[2020-01-16] MEDS: ISOSORBIDE MONONITRATE (30MG) 30 MG TAB.SR.24H PO SCH (17:05)
--- NOTE | 2020-01-16 17:40 | NUR ---
MS RN CLOSING NOTE Pt awake in bed. A/O x3. Breathing even, unlabored. No signs of SOB or acute distress. No JVD. Skin warm, pink, dry. No edema. COVID result pending. Bed in low position, wheels locked, side rails up x2, call light within reach.
--- NOTE | 2020-01-16 19:30 | NUR ---
MS RN RECEIVE PT IN BED A/O X 3, IN STABLE, NO S/S OF DISTRESS, C/O SEVERE BACK PAIN. SAFETY MEASURES AT ALL TIMES. WILL CONT TO MONITOR
[2020-01-16 20:00] VITALS: BP 104/56
[2020-01-16] MEDS: TRAZODONE 50 MG TABLET PO SCH (21:02)
[2020-01-16] MEDS: SENNOSIDES 8.6 MG TABLET PO SCH (21:02)
[2020-01-17] MEDS: ACETAMINOPHEN 325 MG TABLET PO SCH ×3 (01:42→17:51)
--- NOTE | 2020-01-17 05:19 | NUR ---
MS RN O2 SAT WNL, PT SLEPT WELL, KEPT CLEAN, DRY AND COMFORT AT ALL TIMES. ALL NEEDS ATTENDED AND ANTICIPATED, MONITORED FOR PAIN, NURSING CARE RENDERED, AM CARE. SAFETY MEASURES AT ALL TIMES. WILL ENDORSE TO NEXT SHIFT
[2020-01-17] MEDS: BLOOD SUGAR DIAGNOSTIC 1 EACH STRIP IN SCH ×4 (06:36→21:36)
[2020-01-17] MEDS: INSULIN REGULAR, HUMAN 100 UNIT/ML 3 ML VIAL SQ PRN ×2 (06:37→12:43)
--- NOTE | 2020-01-17 07:30 | NUR ---
RN MS NOTES PT IN BED, AWAKE, ALERT AND ORIENTED, NO COMPLAINT OF PAIN AT THIS TIME, BREATHING PATTERN NORMAL, CALL LIGHT WITHIN REACH, NEEDS ATTENDED.
[2020-01-17 08:00] VITALS: BP 104/62
[2020-01-17] MEDS: GLIMEPIRIDE 4 MG TABLET PO SCH ×2 (08:08→16:18)
[2020-01-17] MEDS: GABAPENTIN 100 MG CAPSULE PO SCH ×3 (08:08→16:18)
[2020-01-17] MEDS: METFORMIN 500 MG TABLET PO SCH ×2 (08:08→16:18)
[2020-01-17] MEDS: METHOCARBAMOL (500MG) 500 MG TABLET PO SCH ×3 (08:08→16:18)
[2020-01-17] MEDS: RANOLAZINE 500 MG TAB.ER.12H PO SCH ×2 (08:08→16:17)
[2020-01-17] MEDS: PANTOPRAZOLE 40 MG TABLET.DR PO SCH (08:08)
[2020-01-17] MEDS: CLOPIDOGREL BISULFATE 75 MG TABLET PO SCH (08:09)
[2020-01-17] MEDS: APIXABAN 5 MG TABLET PO SCH ×2 (08:13→16:19)
[2020-01-17] MEDS: CARVEDILOL 3.125 MG TABLET PO SCH ×2 (08:47→16:24)
[2020-01-17] MEDS: AMLODIPINE BESYLATE 10 MG TABLET PO SCH (08:48)
[2020-01-17] MEDS: LISINOPRIL (20MG) 20 MG TABLET PO SCH (08:48)
[2020-01-17] MEDS: oxyCODONE IR immediate release 5 MG PO PRN ×4 (12:38→22:45)
--- NOTE | 2020-01-17 13:00 | NUR ---
RN MS NOTES PT IN BED, AWAKE, ALERT AND ORIENTED, PAIN MEDS GIVEN FOR BACK PAIN, NOT IN DISTRESS, CALL LIGHT WITHIN REACH, PLAN FOR D/C TO SNF, PT INFORMED, VERBALIZED UNDERSTANDING, ASSISTED PT TO A SITTING POSITION AND THEN BACK TO BED, TOLERATED WELL.
[2020-01-17] MEDS: MAGNESIUM HYDROXIDE 30 ML UDC PO PRN (15:18)
[2020-01-17 16:00] VITALS: BP 114/68
[2020-01-17] MEDS: ISOSORBIDE MONONITRATE (30MG) 30 MG TAB.SR.24H PO SCH (17:12)
[2020-01-17] MEDS: ATORVASTATIN 10 MG TABLET PO SCH (17:51)
--- NOTE | 2020-01-17 18:07 | NUR ---
RN MS NOTES PT IN BED, AWAKE, ALERT AND ORIENTED, WATCHING TV, PAIN MEDS GIVEN FOR PAIN MANAGEMENT, NOT IN DISTRESS, ASSISTED IN TURNING AND REPOSITIONING, PM MEDS GIVEN ORDERED, PT WITH DISCHARGE ORDER, AWAITING PLACEMENT PER CORE CARRIER, PT AND SISTER DESHAUN INFORMED, ALL NEEDS ATTENDED.
--- NOTE | 2020-01-17 19:20 | NUR ---
MS RN RECEIVE PT IN BED A/O X 3, WATCHING TV, IN STABLE, NO S/S OF DISTRESS, SAFETY MEASURES AT ALL TIMES. WILL CONT TO MONITOR
[2020-01-17 20:00] VITALS: BP 116/60
[2020-01-17 20:43] VITALS: BP 116/60
--- NOTE | 2020-01-17 21:20 | NUR ---
MS HEIN RECEIVE CALL FROM [facility] NOW AVAILABLE IN [facility] NURSE SPOKE [facility] WILL FF UP HOSPITALIST Addendum: 01/17/20 at 2219 by ISREAL BOLANSO RN SPOKE TO ROMEL
--- NOTE | 2020-01-17 21:30 | NUR ---
PER HOSPITALIST NO DISCHARGE SUMMARY AT THIS TIME CANNOT DC PATIENT. CHARGE NURSE AWARE WILL FF UP AM
[2020-01-17] MEDS: SENNOSIDES 8.6 MG TABLET PO SCH (21:36)
[2020-01-17] MEDS: TRAZODONE 50 MG TABLET PO SCH (21:37)
[2020-01-17] MEDS: ZOLPIDEM TARTRATE 10 MG TABLET PO PRN (21:37)
[2020-01-18] MEDS: INSULIN REGULAR, HUMAN 100 UNIT/ML 3 ML VIAL SQ PRN ×2 (00:58→06:32)
[2020-01-18] MEDS: ACETAMINOPHEN 325 MG TABLET PO SCH ×2 (01:18→09:14)
--- NOTE | 2020-01-18 05:17 | NUR ---
MS RN PT STABLE AND NOT IN DISTRESS, SLEPT WELL, KEPT CLEAN, DRY AND COMFORT AT ALL TIMES. AM CARE RENDERED, ALL NEEDS ATTENDED AND ANTICIPATED, MONITORED FOR PAIN, SAFETY MEASURES AT ALL TIMES. WILL ENDORSE TO NEXT SHIFT
--- NOTE | 2020-01-18 06:09 | NUR ---
RN PT CHECKED BS 40 MG/DL PT AWAKE AND WATCHING TV STABLE WILL CONT TO MONITOR
[2020-01-18] MEDS: BLOOD SUGAR DIAGNOSTIC 1 EACH STRIP IN SCH (06:31)
--- NOTE | 2020-01-18 06:34 | NUR ---
MS RN BLOOD SUGAR 112 MG/DL PT AWAKE AND ALERT AND LOOKING FORWARD TO GO HOME A/O X 4
--- NOTE | 2020-01-18 07:30 | NUR ---
MS RN OPEN NOTES PATIENT IS A/O X3. AWAKE IN BED CALM AND COOPERATIVE. NO SIGNS OF SOB AND NO SIGNS OF DISTRESS. IV R FA #22G SL INTACT. BED IS IN LOW POSITION, SIDE RAILS UP X 2 FOR SAFETY. CALL LIGHT WITHIN REACH. WILL CONTINUE TO MONITOR.
[2020-01-18 08:00] VITALS: BP 109/65
[2020-01-18 09:00] VITALS: BP 109/65
[2020-01-18] MEDS: CLOPIDOGREL BISULFATE 75 MG TABLET PO SCH (09:00)
[2020-01-18] MEDS: GABAPENTIN 100 MG CAPSULE PO SCH (09:00)
[2020-01-18] MEDS: AMLODIPINE BESYLATE 10 MG TABLET PO SCH (09:00)
[2020-01-18] MEDS ORDERED: GLIMEPIRIDE 4 MG TABLET PO SCH (09:00)
[2020-01-18] MEDS: LISINOPRIL (20MG) 20 MG TABLET PO SCH (09:00)
[2020-01-18] MEDS: CARVEDILOL 3.125 MG TABLET PO SCH (09:00)
[2020-01-18] MEDS: APIXABAN 5 MG TABLET PO SCH (09:01)
[2020-01-18] MEDS: METFORMIN 500 MG TABLET PO SCH (09:02)
[2020-01-18] MEDS: PANTOPRAZOLE 40 MG TABLET.DR PO SCH (09:02)
[2020-01-18] MEDS: METHOCARBAMOL (500MG) 500 MG TABLET PO SCH (09:02)
[2020-01-18] MEDS: RANOLAZINE 500 MG TAB.ER.12H PO SCH (09:08)
[2020-01-18] MEDS: oxyCODONE IR immediate release 5 MG PO PRN ×2 (09:14→11:10)
--- NOTE | 2020-01-18 10:00 | NUR ---
RN NOTES CALLED KIMMY SMITH SPOKE WITH NURSE BARBER GAVE REPORT AND GAVE DISCHARGE INSTRUCTIONS WITH FOLLOWING UP WITH PRIMARY CARE DOCTOR, CONTINUING MEDICATIONS AND IN CASE OF AN EMERGENCY TO GO TO THE EMERGENCY ROOM.
--- NOTE | 2020-01-18 10:00 | NUR ---
RN NOTES GAVE PATIENT DISCHARGE INSTRUCTIONS, TO FOLLOW UP WITH PRIMARY CARE DOCTOR, TO CONTINUE WITH MEDICATIONS AND GO TO THE EMERGENCY ROOM IN CASE OF AN EMERGENCY. PATIENT VERBALLY REPEATED THE TEACH BACK WENT OVER THE BELONGING LIST WITH THE PATIENT.
[2020-01-18] MEDS: MAGNESIUM HYDROXIDE 30 ML UDC PO PRN (11:16)
--- NOTE | 2020-01-18 11:30 | NUR ---
RN NOTES PATIENT WAS PICKED UP BY [facility]IA [facility]. PATIENT VITALS ARE STABLE WITH NO SIGNS OF SHORTNESS OF BREATH AND NO DISTRESS. BACK BRACE ON FOR BACK SUPPORT AND FOR AMBULATION.
== END 2020-01-18 11:30 | DRG 543 ==
LOC: ER 18:15 → MED 22:38
PROVIDERS: ATTEND Internal Medicine
DX: M48.56XA Collapsed vertebra, not elsewhere classified, lumbar region, initial encounter for fracture (principal); E87.2 Acidosis; E22.2 Syndrome of inappropriate secretion of antidiuretic hormone; E87.5 Hyperkalemia; I25.10 Atherosclerotic heart disease of native coronary artery without angina pectoris; W19.XXXA Unspecified fall, initial encounter; E78.5 Hyperlipidemia, unspecified; I10 Essential (primary) hypertension; Z95.2 Presence of prosthetic heart valve; E80.6 Other disorders of bilirubin metabolism; E11.9 Type 2 diabetes mellitus without complications; E86.1 Hypovolemia; M54.5 Low back pain; Y93.9 Activity, unspecified; Y92.129 Unspecified place in nursing home as the place of occurrence of the external cause; Z79.84 Long term (current) use of oral hypoglycemic drugs; R74.8 Abnormal levels of other serum enzymes; N28.9 Disorder of kidney and ureter, unspecified
CPT/HCPCS: 36415; 72070-TC; 72110-TC; 73521; 80048-TC; 80053-TC; 80061-TC; 80076-TC; 82570-TC; 82962-TC; 83735-TC; 83935-TC; 84100-TC; 84300-TC; 84443-TC; 84550-TC; 85025-TC; 87081-TC; 93880-TC; 97110-TC; 97116-TC; 97530-TC; 97535-TC; G0378; J1650; J1815; J2270; J2405; J7030; U0003-CS

== ENCOUNTER 2020-05-28 19:55 | Inpatient (IN) | payer BC, OTHER ==
[~2020-05-28] VITALS: Ht 180.3 cm; Wt 75.7 kg
[~2020-05-28 19:55] MED LIST: ALPR0.5T8 PO; AMLO-213 PO; APIX5TAB PO; ATOR10TA PO; CARV3.122 PO; CLOP75TA15 PO; GABA-532 PO; GLIM4TAB37 PO; HYDR-4354 PO; INSU200I4 SQ; ISOS60TA4 PO; LISI40TA4 PO; MELA3TAB41 PO; METF-442 PO; METH500T7 PO; OXYC5TAB3 PO; PANT40TA49 PO; RANO10005 PO; SENN-261 PO; SOTA80TA PO; TRAM50TA2 PO; TRAZ-252 PO; ZOLP10TA2 PO
--- NOTE | 2020-05-28 20:16 | NUR ---
PATIENT CAME TO ER BED 14 C/O LOW BLOOD SUGAR. PATIENT RECEIVED D10 IN THE FIELD AND HAS A BLOOD SUGAR OF 120s. UPON ARRIVAL TO THE ER, BLOOD SUGAR 102. PATIENT IS AAOX4. NO SOB. BREATHING EVENLY AND UNLABORED ON ROOM AIR. 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
--- NOTE | 2020-05-28 20:24 | NUR ---
brought to [place]
[2020-05-28 20:45] LABS: BASOPHILS # (AUTO) 0.2 /CMM (0.0-0.2); BASOPHILS % (AUTO) 2.2 % (0.0-2.0); EOSINOPHILS % (AUTO) 0.4 % (0.0-6.0); HEMATOCRIT 44 % (39-51); HEMOGLOBIN 14.3 g/dL (13.5-17.5); LYMPHOCYTES # (AUTO) 1.8 /CMM (0.8-4.8); LYMPHOCYTES % (AUTO) 20.7 % (20.0-44.0); MEAN CORPUSCULAR HGB CONC 33 g/dl (31.0-36.0); MEAN CORPUSCULAR VOLUME 97 fL (80-96); MONOCYTES # (AUTO) 0.6 /CMM (0.1-1.30); MONOCYTES % (AUTO) 6.6 % (2.0-12.0); NEUTROPHILS # (AUTO) 6.1 /CMM (1.8-8.9); NEUTROPHILS % (AUTO) 70.1 % (43.0-81.0); PLATELET COUNT (AUTO) 178 /CMM (150-450); RED BLOOD CELL COUNT(AUTO) 4.48 MIL/uL (4.5-6.0); WHITE BLOOD COUNT (AUTO) 8.8 K/uL (4.3-11.0)
[2020-05-28 20:53] LABS: CALCIUM, SERUM 8.7 mg/dL (8.5-10.1); CARBON DIOXIDE 22 mmol/L (21-32); CHLORIDE 101 mmol/L (98-107); GLUCOSE 98 mg/dL (74-106); POTASSIUM 4.9 mmol/L (3.5-5.1); SODIUM SERUM 134 mmol/L (136-145); UREA NITROGEN, BLOOD 19 mg/dL (7-18)
[2020-05-28 20:59] LABS: ALANINE AMINOTRANSFERASE 20 U/L (12-78); ALBUMIN 3.7 g/dL (3.4-5.0); ALKALINE PHOSPHATASE 75 U/L (46-116); ASPARTATE AMINOTRANSFERASE 14 U/L (15-37); BILIRUBIN,DIRECT 0.2 mg/dL (0.0-0.2); BILIRUBIN,TOTAL 0.6 mg/dL (0.2-1.0); TOTAL PROTEIN, SERUM 7.2 g/dL (6.4-8.2)
[2020-05-28] MEDS ORDERED: ACETAMINOPHEN 325 MG TABLET PO ONE (21:30)
[2020-05-28] MEDS ORDERED: ACETAMINOPHEN ES 500 MG TABLET ONE (21:35)
[2020-05-28 21:36] LABS: BILIRUBIN,URINE Negative (NEGATIVE); BLOOD, URINE Negative Ery/uL (NEGATIVE); COLOR,URINE YELLOW (YELLOW); LEUKOCYTE ESTERASE ,URINE Negative (NEGATIVE); NITRITE, URINE Negative (NEGATIVE); PROTEIN,URINE Negative (NEGATIVE); UGLUCOSE 100 MG/DL mg/dL (NEGATIVE); UROBILINOGEN,URINE 0.2 EU/dL (0.2)
--- NOTE | 2020-05-28 21:46 | NUR ---
URINE COLLECTED, SENT TO LAB.
--- NOTE | 2020-05-28 21:51 | NUR ---
PT PLACED ON MONITOR AND PULSE OX. NO ACUTE DISTRESS NOTED. ABRASION NOTED ON R SIDE OF FOREHEAD. PT PROVIDED WITH MORE BLANKETS. VSS. DENIES ANY PAIN. AAOX4.
--- NOTE | 2020-05-28 21:56 | NUR ---
CALLED LAB FOR COVID SWAB
[2020-05-28 22:02] LABS: BACTERIA,URINE Few /HPF (None Seen); RBC,URINE 0-2 /HPF (0-2); SQUAMOUS EPITHELIAL CELL,UR Few /HPF (None Seen); WBC,URINE 0-2 /HPF (0-3)
--- NOTE | 2020-05-28 22:12 | NUR ---
EMT AT BEDSIDE FOR REPEAT EKG
--- NOTE | 2020-05-28 22:14 | NUR ---
JUVENTINO CALLED [phone] THOMAS.
--- NOTE | 2020-05-28 22:33 | NUR ---
CALLED LAB FOR COVID SWAB
--- NOTE | 2020-05-28 22:45 | NUR ---
COVID SWABBED, SENT TO LAB
--- NOTE | 2020-05-28 22:55 | NUR ---
CHECKED BG, 23. RECHECKED OPPOSITE HAND 32, PA AWARE. WILL ADMINISTER D50.
[2020-05-28] MEDS ORDERED: DEXTROSE 50%-WATER 50 ML DISP.SYRIN ONE (22:56)
[2020-05-28] MEDS ORDERED: DEXTROSE 50%-WATER 50 ML DISP.SYRIN IV ONE (23:00)
--- NOTE | 2020-05-28 23:23 | NUR ---
CALL FROM LAB, RAPID COVID NEGATIVE.
--- NOTE | 2020-05-28 23:27 | NUR ---
SPOKE TO THOMAS (ROOMATE) UPDATED PLAN OF CARE UPON WINIFRED'S REQUEST.
--- NOTE | 2020-05-28 23:41 | NUR ---
REPEAT BG 115
[2020-05-29] VITALS (7 sets, daily range): BP systolic 108–140; BP diastolic 65–79
[2020-05-29] MEDS ORDERED: ONDANSETRON HCL/PF 4 MG/2 ML VIAL IVP PRN (00:30)
[2020-05-29] MEDS ORDERED: ALPRAZOLAM 0.5 MG TABLET PO PRN (00:30)
[2020-05-29] MEDS ORDERED: HYDROCODONE/APAP 10/325MG TABLET PO PRN (00:30)
[2020-05-29] MEDS ORDERED: HYDROCODONE/APAP 5/325MG TABLET PO PRN (00:30)
[2020-05-29] MEDS ORDERED: TRAMADOL HCL 50 MG TABLET PO PRN (00:30)
[2020-05-29] MEDS ORDERED: IV D5/ 0.9% NACL 1,000 ML IV ONE ×2 (00:30→02:00)
[2020-05-29] MEDS ORDERED: ACETAMINOPHEN 325 MG TABLET PO PRN (00:30)
[2020-05-29] MEDS ORDERED: MAGNESIUM HYDROXIDE 30 ML UDC PO PRN (00:30)
[2020-05-29] MEDS ORDERED: MAG HYDROX/AL HYDROX/SIMETH 30 ML UDC PO PRN (00:30)
[2020-05-29] MEDS ORDERED: Z GUARD REMEDY 2 OZ OINT TP PRN (00:30)
--- NOTE | 2020-05-29 00:54 | NUR ---
RECHECKED BG, 64, PER MD GIVE D50.
[2020-05-29] MEDS ORDERED: DEXTROSE 50%-WATER 50 ML DISP.SYRIN IVP ONE (01:00)
--- NOTE | 2020-05-29 01:57 | NUR ---
REPORT GIVEN TO DIMITRIS HEIN FOR HIWOT
[2020-05-29] MEDS ORDERED: oxyCODONE IR immediate release 5 MG PO PRN (02:00)
--- NOTE | 2020-05-29 02:09 | NUR ---
PT TRANSFERED PER ACLS PROTOCOL
--- NOTE | 2020-05-29 02:10 | NUR ---
RN ADMITTING NOTES PATIENT RECEIVED VIA GURNEY ACCOMPANIED BY ER STAFF. PATIENT A/O X 4, STABLE ON RA WITH BREATHING EVEN AND UNLABORED, NO SOB NOTED. NO SIGNS OF ACUTE DISTRESS. NO COMPLAINTS OF PAIN OR DISCOMFORT AT THE MOMENT. IV LOCATED ON R AC #18 PATENT AND INTACT. TELE MONITORS PLACED. SKIN ASSESSMENT DONE. ALL BELONGINGS ACCOUNTED FOR. PATIENT ORIENTED TO ROOM AND STAFF. SAFETY PRECAUTIONS IN PLACE WITH BED IN LOWEST POSITION, CALL LIGHT WITHIN REACH, BREAKS ON, SIDE RAILS UP. WILL CONTINUE TO MONITOR THROUGHOUT THE NIGHT.
--- NOTE | 2020-05-29 02:48 | NUR ---
RN NOTES CONTACTED MD MUELLER IN REGARDS TI ACCU CHECK ORDERS. ORDERED ACCU CHECK 6QH WITH NO INSULIN COVERAGE, JUST TO MONITOR. ORDERS CARRIED OUT.
[2020-05-29] MEDS: BLOOD SUGAR DIAGNOSTIC 1 EACH STRIP IN SCH ×4 (05:00→17:39)
--- NOTE | 2020-05-29 06:47 | NUR ---
RN CLOSING NOTES PATIENT IN BED RESTING A/O X 4. STABLE ON RA WITH BREATHING EVEN AND UNLABORED, NO SOB NOTED. NO SIGNS OF ACUTE DISTRESS. NO COMPLAINTS OF PAIN OR DISCOMFORT AT THE MOMENT.TELE MONITOR READING A FLUTTER WITH BIGEMINY. IV LOCATED ON R AC #18 RUNNING D5NS @ 50 ML/HR. SAFETY PRECAUTIONS IN PLACE WITH BED IN LOWEST POSITION, CALL LIGHT WITHIN REACH, BREAKS ON, SIDE RAILS UP. ALL NEEDS ATTENDED TO. WILL ENDORSE TO ONCOMING SHIFT ABOUT HIWOT.
--- NOTE | 2020-05-29 07:05 | NUR ---
ms rn received on bed, awake,alert,oriented x3-4, not in any form of distress, denies pain at this time,all needs attended.
[2020-05-29] MEDS: METHOCARBAMOL (500MG) 500 MG TABLET PO SCH ×3 (08:47→17:39)
[2020-05-29] MEDS: CLOPIDOGREL BISULFATE 75 MG TABLET PO SCH (08:48)
[2020-05-29] MEDS: AMLODIPINE BESYLATE 10 MG TABLET PO SCH (08:48)
[2020-05-29] MEDS: GABAPENTIN 100 MG CAPSULE PO SCH ×3 (08:48→17:39)
[2020-05-29] MEDS: LISINOPRIL (20MG) 20 MG TABLET PO SCH (08:48)
[2020-05-29] MEDS: CARVEDILOL 3.125 MG TABLET PO SCH ×2 (08:49→17:52)
[2020-05-29] MEDS: PANTOPRAZOLE 40 MG TABLET.DR PO SCH (08:58)
[2020-05-29] MEDS: SOTALOL HCL 80 MG TABLET PO SCH ×2 (08:59→17:51)
[2020-05-29] MEDS: RANOLAZINE 500 MG TAB.ER.12H PO SCH ×2 (08:59→17:40)
--- NOTE | 2020-05-29 09:00 | NUR ---
ms del rosario breakfast served,due meds given, tolerated well.
[2020-05-29] MEDS: APIXABAN 5 MG TABLET PO SCH ×2 (09:16→18:03)
--- NOTE | 2020-05-29 12:00 | NUR ---
ms rn bs- 168- no coverage noted,radha sugar
[2020-05-29 12:05] LABS: BASOPHILS # (AUTO) 0.1 /CMM (0.0-0.2); BASOPHILS % (AUTO) 0.7 % (0.0-2.0); EOSINOPHILS % (AUTO) 0.9 % (0.0-6.0); HEMATOCRIT 51 % (39-51); HEMOGLOBIN 16.7 g/dL (13.5-17.5); LYMPHOCYTES # (AUTO) 3.2 /CMM (0.8-4.8); LYMPHOCYTES % (AUTO) 28.9 % (20.0-44.0); MEAN CORPUSCULAR HGB CONC 33 g/dl (31.0-36.0); MEAN CORPUSCULAR VOLUME 97 fL (80-96); MONOCYTES % (AUTO) 9.2 % (2.0-12.0); NEUTROPHILS # (AUTO) 6.7 /CMM (1.8-8.9); NEUTROPHILS % (AUTO) 60.3 % (43.0-81.0); PLATELET COUNT (AUTO) 212 /CMM (150-450); RED BLOOD CELL COUNT(AUTO) 5.31 MIL/uL (4.5-6.0); WHITE BLOOD COUNT (AUTO) 11.2 K/uL (4.3-11.0)
[2020-05-29 12:21] LABS: ALANINE AMINOTRANSFERASE 21 U/L (12-78); ALBUMIN 4.9 g/dL (3.4-5.0); ALKALINE PHOSPHATASE 98 U/L (46-116); ASPARTATE AMINOTRANSFERASE 11 U/L (15-37); BILIRUBIN,TOTAL 1.2 mg/dL (0.2-1.0); CARBON DIOXIDE 25 mmol/L (21-32); CHLORIDE 99 mmol/L (98-107); GLUCOSE 174 mg/dL (74-106); MAGNESIUM 1.4 mg/dL (1.8-2.4); PHOSPHORUS 2.6 mg/dL (2.5-4.9); POTASSIUM 4.5 mmol/L (3.5-5.1); SODIUM SERUM 135 mmol/L (136-145); TOTAL PROTEIN, SERUM 8.9 g/dL (6.4-8.2); UREA NITROGEN, BLOOD 14 mg/dL (7-18)
--- NOTE | 2020-05-29 12:30 | NUR ---
ms miguel ángel was seen by dr. mix, w/ orders made and carried out.
[2020-05-29 12:47] LABS: CHOLESTEROL 93 mg/dL (<200); HDL CHOLESTEROL 50 mg/dL (40-60); LDL 31 mg/dL (0-99); THYROID STIMULATING HORMONE 1.458 uIU/mL (0.358-3.74); TRIGLYCERIDES 100 mg/dL (30-150)
--- NOTE | 2020-05-29 13:00 | NUR ---
ms rn patient's 2 friends repeatedly calling for updates.
--- NOTE | 2020-05-29 15:00 | NUR ---
ms rn faxed request to [facility] regarding health documents requested by dr. moe.
--- NOTE | 2020-05-29 17:30 | NUR ---
ms rn bs- 225- no coverage given, patient came in w/ very low sugar.
[2020-05-29] MEDS: Magnesium 1GM/D5W 100ML PREMIX 100 ML IV SCH ×4 (17:38→21:51)
[2020-05-29] MEDS: ATORVASTATIN 10 MG TABLET PO SCH (17:39)
[2020-05-29] MEDS: ISOSORBIDE MONONITRATE (30MG) 30 MG TAB.SR.24H PO SCH (17:50)
[2020-05-29] MEDS ORDERED: ISOSORBIDE MONONITRATE 60 MG TAB.SR.24H PO SCH (18:00)
--- NOTE | 2020-05-29 18:00 | NUR ---
ms rn on bed, all needs attended.
--- NOTE | 2020-05-29 20:34 | NUR ---
RN NOTES RECEIVED PT. AWAKE ON BED, A/OX3-4, A-FLUTTER ON TELE MONITOR HR-87, DENIES PAIN, NO SOB, CALL LIGHT WITHIN REACH, BED IN LOCKED POSITION, SIDERAILSUPX2, CONTINUE TO MONITOR
[2020-05-29] MEDS: SENNOSIDES 8.6 MG TABLET PO SCH (21:53)
[2020-05-29] MEDS: TRAZODONE 50 MG TABLET PO SCH (21:53)
[2020-05-29] MEDS ORDERED: Medication Not On Formulary EA (Melatonin 3 MG) PO SCH (22:00)
[2020-05-30] VITALS: BP_SYST 125; BP_SYST 137; BP_DIAS 61; BP_DIAS 70
--- NOTE | 2020-05-30 | NUR ---
RN NOTES BLOOD SUGAR-248, NO COVERAGE WAS GIVEN. PT ACCU CHECK IS FOR MONITORING OF BLOOD SUGAR ONLY
[2020-05-30] MEDS: BLOOD SUGAR DIAGNOSTIC 1 EACH STRIP IN SCH ×5 (00:16→23:46)
[2020-05-30] MEDS: ZOLPIDEM TARTRATE 5 MG TABLET PO PRN (02:34)
[2020-05-30 04:00] VITALS: BP_SYST 114; BP_SYST 122; BP_SYST 129; BP_SYST 139; BP_DIAS 66; BP_DIAS 68; BP_DIAS 69; BP_DIAS 76
--- NOTE | 2020-05-30 06:00 | NUR ---
RN NOTES BLOOD SUGAR -228, NO COVERAGE GIVEN , ACCU CHECK FOR BLOOD SUGAR MONITORING ONLY
[2020-05-30 06:12] LABS: BASOPHILS # (AUTO) 0.1 /CMM (0.0-0.2); BASOPHILS % (AUTO) 0.6 % (0.0-2.0); HEMATOCRIT 47 % (39-51); HEMOGLOBIN 15.8 g/dL (13.5-17.5); LYMPHOCYTES # (AUTO) 4.4 /CMM (0.8-4.8); LYMPHOCYTES % (AUTO) 38.1 % (20.0-44.0); MEAN CORPUSCULAR HGB CONC 33 g/dl (31.0-36.0); MEAN CORPUSCULAR VOLUME 95 fL (80-96); MONOCYTES # (AUTO) 1.2 /CMM (0.1-1.30); MONOCYTES % (AUTO) 10.7 % (2.0-12.0); NEUTROPHILS # (AUTO) 5.7 /CMM (1.8-8.9); NEUTROPHILS % (AUTO) 49.6 % (43.0-81.0); PLATELET COUNT (AUTO) 190 /CMM (150-450); RED BLOOD CELL COUNT(AUTO) 4.97 MIL/uL (4.5-6.0); WHITE BLOOD COUNT (AUTO) 11.6 K/uL (4.3-11.0)
--- NOTE | 2020-05-30 06:24 | NUR ---
RN NOTES AWAKE, MORNING CARE RENDERED DENIES PAIN, NO SOB CALL LIGHT WITHIN REACH,SIDERAILSUPX2, PT. NEEDS ATTENDED
[2020-05-30] MEDS: PANTOPRAZOLE 40 MG TABLET.DR PO SCH (07:30)
--- NOTE | 2020-05-30 07:30 | NUR ---
JIG AND FIXTURE MAKER OPENING NOTES BEDSIDE ENDORSEMENT DONE. PATIENT IS IN BED AWAKE AND VERBALLY RESPONSIVE. A/O 3, ABLE TO MAKE NEEDS KNOWN. BREATHING EVEN AND UNLABORED, TOLERATING ROOM AIR, NO RESPIRATORY DISTRESS NOTED. ON TELE MONITORING W/ READING OF A-FLUTTER, HR IN THE MID 90'S. IV LINE ON RAC #18, INTACT AND PATENT. SAFETY PRECAUTIONS IN PLACE: BED LOCKED AND ON LOWEST POSITION, SR UP X2, CALL LIGHT KEPT WITHIN REACH. WILL CONTINUE TO MONITOR.
[2020-05-30 08:00] VITALS: BP 145/74
[2020-05-30] MEDS: CLOPIDOGREL BISULFATE 75 MG TABLET PO SCH (08:58)
[2020-05-30] MEDS: APIXABAN 5 MG TABLET PO SCH ×2 (08:59→16:58)
[2020-05-30] MEDS ORDERED: CARVEDILOL 3.125 MG TABLET PO SCH (09:00)
[2020-05-30] MEDS: SOTALOL HCL 80 MG TABLET PO SCH ×2 (09:01→17:00)
[2020-05-30] MEDS: CARVEDILOL 12.5 MG TABLET PO SCH ×2 (09:02→16:56)
[2020-05-30] MEDS: RANOLAZINE 500 MG TAB.ER.12H PO SCH ×2 (09:02→16:56)
[2020-05-30] MEDS: GABAPENTIN 100 MG CAPSULE PO SCH ×3 (09:02→16:55)
[2020-05-30] MEDS: LISINOPRIL (20MG) 20 MG TABLET PO SCH (09:03)
[2020-05-30] MEDS: AMLODIPINE BESYLATE 10 MG TABLET PO SCH (09:03)
[2020-05-30] MEDS: METHOCARBAMOL (500MG) 500 MG TABLET PO SCH ×3 (09:03→16:55)
[2020-05-30 16:00] VITALS: BP 123/78
[2020-05-30] MEDS: ATORVASTATIN 10 MG TABLET PO SCH (17:03)
[2020-05-30] MEDS: ISOSORBIDE MONONITRATE (30MG) 30 MG TAB.SR.24H PO SCH (17:03)
--- NOTE | 2020-05-30 18:55 | NUR ---
CAMPUS COORDINATOR CLOSING NOTES PATIENT IS IN BED AWAKE AND VERBALLY RESPONSIVE. A/O 3, ABLE TO MAKE NEEDS KNOWN. BREATHING EVEN AND UNLABORED, TOLERATING ROOM AIR, NO RESPIRATORY DISTRESS NOTED. ON TELE MONITORING W/ READING OF A-FLUTTER, HR IN THE MID 80'S-LOW 90'S. IV LINE ON RAC #18, INTACT AND PATENT. ALL DUE MEDS GIVEN. PATIENT ABLE TO AMBULATE W/ FWW W/ SBA TO BATHROOM. SAFETY PRECAUTIONS MAINTAINED: BED LOCKED AND ON LOWEST POSITION, SR UP X2, CALL LIGHT KEPT WITHIN REACH. WILL ENDORSE TO [employer] KNITTER RN FOR HIWOT.
--- NOTE | 2020-05-30 19:30 | NUR ---
RN NOTES RECEIVED PT AWAKE ON BED, A/OX4, AMBULATE WITH WALKER, A-FLUTTER ON TELE MONITOR HR-83, NOT IN DISTRESS, BED IN LOCKED POSITION, IV ACCESS IN PLACE, FLUSHING WELL, CALL LIGHT WITHIN REACH, SIDERAILSUPX2, CONTINUE TO MONITOR
[2020-05-30 20:00] VITALS: BP 109/71
[2020-05-30 20:09] VITALS: BP 109/71
[2020-05-30] MEDS: TRAZODONE 50 MG TABLET PO SCH (21:22)
[2020-05-30] MEDS: SENNOSIDES 8.6 MG TABLET PO SCH (21:22)
--- NOTE | 2020-05-30 23:47 | NUR ---
RN NOTES BLOOD SUGAR-207. NO COVERAGE GIVEN PT, IS FOR BLOOD SUGAR MONITORING, AND PATIENT ATE ICE CREAM 2 HRS AGO
[2020-05-31] VITALS (8 sets, daily range): BP systolic 111–142; BP diastolic 61–73
[2020-05-31] MEDS: ZOLPIDEM TARTRATE 5 MG TABLET PO PRN (00:33)
[2020-05-31] MEDS: BLOOD SUGAR DIAGNOSTIC 1 EACH STRIP IN SCH ×2 (05:25→11:59)
--- NOTE | 2020-05-31 05:30 | NUR ---
RN NOTES BLOOD SUGAR-188 NO COVERAGE GIVEN, PT'S BLOOD SUGAR TEST FOR ONLY MONITORING
--- NOTE | 2020-05-31 06:47 | NUR ---
RN NOTES AWAKE, MORNING CARE RENDERED, DENIES PAIN, NO SOB, CALL LIGHT WITHIN REACH, SIDERAILSUPX2, PT. NEEDS ATTENDED
--- NOTE | 2020-05-31 07:28 | NUR ---
TUBE MOLDER FIBERGLASS NOTES PATIENT RECEIVED IN BED, RESTING COMFORTABLY, ALERT AND ORIENTED X 3. PATIENT ON ROOM AIR WITH NO SIGNS OF RESPIRATORY DISTRESS AT THIS TIME, WITH EVEN NON-LABORED BREATHING, AND NO SOB NOTED. PATIENT ON TELE MONITOR, AFLUTTER 70'S. PATIENT HAS RIGHT TEMPORAL ABRASION, PATIENT PRESENTING WITH NO PAIN OR DISCOMFORT AT THIS TIME. SKIN WARM AND DRY TO TOUCH. IV ACCESS INTACT AND PATENT. SAFETY PRECAUTIONS IMPLEMENTED WITH BED LOCKED, BED IN THE LOWEST POSITION, BILATERAL SIDE RAILS UP, AND CALL LIGHT WITHIN EASY REACH OF PATIENT. WILL CONTINUE TO MONITOR PATIENT.
[2020-05-31 07:29] LABS: BASOPHILS % (AUTO) 0.4 % (0.0-2.0); HEMATOCRIT 49 % (39-51); LYMPHOCYTES % (AUTO) 33.6 % (20.0-44.0); MEAN CORPUSCULAR HGB CONC 33 g/dl (31.0-36.0); MEAN CORPUSCULAR VOLUME 97 fL (80-96); MONOCYTES # (AUTO) 1.2 /CMM (0.1-1.30); MONOCYTES % (AUTO) 10.2 % (2.0-12.0); NEUTROPHILS # (AUTO) 6.6 /CMM (1.8-8.9); NEUTROPHILS % (AUTO) 54.8 % (43.0-81.0); PLATELET COUNT (AUTO) 193 /CMM (150-450); RED BLOOD CELL COUNT(AUTO) 5.03 MIL/uL (4.5-6.0)
[2020-05-31 07:45] LABS: CALCIUM, SERUM 9.5 mg/dL (8.5-10.1); CARBON DIOXIDE 23 mmol/L (21-32); CHLORIDE 99 mmol/L (98-107); GLUCOSE 215 mg/dL (74-106); PHOSPHORUS 3.8 mg/dL (2.5-4.9); POTASSIUM 4.3 mmol/L (3.5-5.1); SODIUM SERUM 134 mmol/L (136-145); UREA NITROGEN, BLOOD 25 mg/dL (7-18)
[2020-05-31] MEDS: PANTOPRAZOLE 40 MG TABLET.DR PO SCH (08:29)
[2020-05-31] MEDS: SOTALOL HCL 80 MG TABLET PO SCH (08:30)
[2020-05-31] MEDS: GABAPENTIN 100 MG CAPSULE PO SCH ×2 (08:30→12:59)
[2020-05-31] MEDS: METHOCARBAMOL (500MG) 500 MG TABLET PO SCH ×2 (08:31→12:59)
[2020-05-31] MEDS: AMLODIPINE BESYLATE 10 MG TABLET PO SCH (08:31)
[2020-05-31] MEDS: CLOPIDOGREL BISULFATE 75 MG TABLET PO SCH (08:31)
[2020-05-31] MEDS: RANOLAZINE 500 MG TAB.ER.12H PO SCH (08:32)
[2020-05-31] MEDS: APIXABAN 5 MG TABLET PO SCH (08:32)
[2020-05-31] MEDS: LISINOPRIL (20MG) 20 MG TABLET PO SCH (08:33)
[2020-05-31] MEDS: CARVEDILOL 12.5 MG TABLET PO SCH (08:33)
--- NOTE | 2020-05-31 11:47 | NUR ---
WOUND CARE CONSULT: PT PRESENTS INDEPENDENT WITH BED MOBILITY AND CONTINENT WITH DRY ABRASION TO TOP OF HEAD, PRESENT ON ADMISSION. NO DRAINAGE OR ERYTHEMA NOTED. WILL SEE PRN.
--- NOTE | 2020-05-31 13:40 | NUR ---
BANQUET COORDINATOR NOTES PATIENT AWAKE, ALERT AND ORIENTED X 3, ON ROOM AIR WITH NO SIGNS OF RESPIRATORY DISTRESS AT THIS TIME, WITH EVEN NON-LABORED BREATHING, AND NO SOB NOTED. PATIENT VITAL SIGNS WNL. IV ACCESS REMOVED, CATHETER TIP INTACT, AND APPLIED PRESSURE TO SITE AND SECURED IT WITH GAUZE. REMOVED ID BAND. SKIN ASSESSMENT DONE. PATIENT ACCOUNTED FOR ALL OF HIS BELONGINGS. PROVIDED EXIT CARE TO PATIENT. PATIENT LEFT UNIT VIA WHEELCHAIR, AND LEFT HOSPITAL IN A PRIVATE CAR.
--- NOTE | 2020-05-31 15:45 | NUR ---
SS consult requested by Alessandro Tracey MD for Advanced Directive information on 05/29/2020. SW not available during weekends. Upon SS consult today 05/31/2020 the pt. had already been discharged.
== END 2020-05-31 13:45 | disposition home or self-care (01) | DRG 74 ==
LOC: ER 19:59 → TELE 05-29 01:37 → MED 05-31 11:07
DX: G90.8 Other disorders of autonomic nervous system (principal); I48.92 Unspecified atrial flutter; N17.9 Acute kidney failure, unspecified; E11.649 Type 2 diabetes mellitus with hypoglycemia without coma; K21.9 Gastro-esophageal reflux disease without esophagitis; I10 Essential (primary) hypertension; I48.91 Unspecified atrial fibrillation; I25.10 Atherosclerotic heart disease of native coronary artery without angina pectoris; E78.5 Hyperlipidemia, unspecified; G89.29 Other chronic pain; Z79.4 Long term (current) use of insulin; Z95.2 Presence of prosthetic heart valve
CPT/HCPCS: 36415; 70450-TC; 71045-TC; 80048-TC; 80053-TC; 80061-TC; 80076-TC; 81001; 82962-TC; 83735-TC; 83880; 84100-TC; 84439-TC; 84443-TC; 84484-TC; 85025-TC; 87081-TC; 93307-TC; C9803; G0378; J3475; J7042

== ENCOUNTER 2020-11-18 23:28 | Inpatient (IN) | payer BC ==
[~2020-11-18] VITALS: Ht 180.3 cm; Wt 81.6 kg
[~2020-11-18 23:28] MED LIST changes: -GLIM4TAB37 PO; -INSU200I4 SQ; -ISOS60TA4 PO; +ISOS60TA72 PO; +LISI40TA13 PO; -LISI40TA4 PO; +METH-647 PO; -METH500T7 PO; -TRAM50TA2 PO; -ZOLP10TA2 PO
--- NOTE | 2020-11-18 23:30 | NUR ---
[id number] FROM HOME C/O PALPITATIONS X4HR CANDLES POURER, PT AAOX4, -SOB, NAD NOTED, VSS ,PENDING ER PROVIDER MRACELA
[2020-11-19] VITALS (8 sets, daily range): BP systolic 128–178; BP diastolic 79–110
[2020-11-19 00:05] LABS: BASOPHILS # (AUTO) 0.1 /CMM (0.0-0.2); BASOPHILS % (AUTO) 0.7 % (0.0-2.0); EOSINOPHILS % (AUTO) 0.3 % (0.0-6.0); HEMATOCRIT 48 % (39-51); LYMPHOCYTES # (AUTO) 4.1 /CMM (0.8-4.8); LYMPHOCYTES % (AUTO) 29.1 % (20.0-44.0); MEAN CORPUSCULAR HGB CONC 33 g/dl (31.0-36.0); MEAN CORPUSCULAR VOLUME 94 fL (80-96); MONOCYTES # (AUTO) 1.5 /CMM (0.1-1.30); MONOCYTES % (AUTO) 10.5 % (2.0-12.0); NEUTROPHILS # (AUTO) 8.4 /CMM (1.8-8.9); NEUTROPHILS % (AUTO) 59.4 % (43.0-81.0); PLATELET COUNT (AUTO) 137 /CMM (150-450); RED BLOOD CELL COUNT(AUTO) 5.13 MIL/uL (4.5-6.0); WHITE BLOOD COUNT (AUTO) 14.1 K/uL (4.3-11.0)
[2020-11-19 00:22] LABS: CALCIUM, SERUM 8.6 mg/dL (8.5-10.1); CREATININE 1.2 mg/dL (0.6-1.3); POTASSIUM 4.6 mmol/L (3.5-5.1)
[2020-11-19 00:28] LABS: BILIRUBIN,DIRECT 0.3 mg/dL (0.0-0.2); BILIRUBIN,TOTAL 1.7 mg/dL (0.2-1.0); TOTAL PROTEIN, SERUM 6.7 g/dL (6.4-8.2)
--- NOTE | 2020-11-19 01:27 | NUR ---
covid swab collected and sent to lab
[2020-11-19] MEDS ORDERED: ZOLPIDEM TARTRATE 5 MG TABLET ONE (02:26)
[2020-11-19] MEDS ORDERED: ZOLPIDEM TARTRATE 5 MG TABLET PO ONE (02:30)
--- NOTE | 2020-11-19 02:48 | NUR ---
CALL FROM LAB. RAPID COVID NEGATIVE.
[2020-11-19] MEDS ORDERED: ACETAMINOPHEN 325 MG TABLET PO PRN (03:00)
[2020-11-19] MEDS ORDERED: ONDANSETRON HCL/PF 4 MG/2 ML VIAL IVP PRN (03:00)
[2020-11-19] MEDS ORDERED: MAG HYDROX/AL HYDROX/SIMETH 30 ML UDC PO PRN (03:00)
[2020-11-19] MEDS ORDERED: DOCUSATE SODIUM 100 MG CAPSULE PO PRN (03:00)
--- NOTE | 2020-11-19 03:25 | NUR ---
tele bed: [phone]
--- NOTE | 2020-11-19 03:41 | NUR ---
REPORT GIVEN TO ANGEL LUIS CULVER
--- NOTE | 2020-11-19 03:55 | NUR ---
JAMES CORDWOOD CUTTER NOTE RECEIVED PATIENT VIA GURNEY. AMBULATED TO BED WITH STEADY GAIT. A/OX4. TOLERATING ROOM AIR. RESPIRATIONS ARE EVEN AND UNLABORED. NO S/S SOB NOTED AT THIS TIME. NO C/O PAIN. EXTERNAL TELE MONITOR APPLIED, READS CONTROLLED AFIB WITH PVC HR 85. IN NO APPARENT DISTRESS. IV ACCESS IN RIGHT WRIST #20 PATENT AND SALINE LOCKED. INITIAL PHYSICAL ASSESSMENT COMPLETED AT THIS TIME. SKIN ASSESSMENT COMPLETED, PHOTOS TAKEN AND PLACED IN CHART. HOTEL CONTROLLER OBTAINED VITAL SIGNS. BED IS LOW AND LOCKED, HOB ELEVATED IN HIGH FOWLERS, SIDE RIALS UP X2, CALL LIGHT WITHIN REACH, INFORMED ON USE. WILL CONTINUE TO MONITOR THROUGHOUT SHIFT.
--- NOTE | 2020-11-19 04:00 | NUR ---
PT WAS TRANSFERRED TO [facility] UNDER ACLS
--- NOTE | 2020-11-19 06:22 | NUR ---
TD RN CLOSING NOTE PATIENT RESTING IN BED A/OX4. REMAINS TOLERATING ROOM AIR. NO RESP DISTRESS. NO C/O PAIN THROUGHOUT SHIFT. TELE MONITOR READS CONTROLLED AFIB WITH PVC GOING UP TO 120S WHEN UP AMBULATING TO RESTROOM.NO DISTRESS. IV ACCESS MAINTAINED IN RIGHT WRIST #20. BED REMAINS LOW AND LOCKED, HOB ELEVATED IN HIGH FOWLERS, SIDE RIALS UP X2, CALL LIGHT WITHIN REACH, WILL ENDORSE TO ONCOMING SHIFT.
--- NOTE | 2020-11-19 07:30 | NUR ---
RN OPENING NOTES PATIENT PRESENT IN BED, A/OX4, ON ROOM AIR, SPO2 98%, NO SOB NOTED, DENIES PAIN, TELEMETRY BOX IN PLACE, CONTROLLED A-FIB WITH PVC, HR OF 94, AMBULATORY, IV LINE PATENT AND FLUSHED ON R HAND G20, SAFETY MEASURES IN PACE, BED LOCKED, IN LOWEST POSITION, HOB ELEVATED, CALL LIGHT IN REACH, WILL CONT TO MONITOR
[2020-11-19] MEDS ORDERED: METO25TA4 PO (08:10)
[2020-11-19] MEDS ORDERED: ALPRAZOLAM 0.5 MG TABLET PO PRN (08:30)
[2020-11-19] MEDS ORDERED: HYDROCODONE/APAP 10/325MG TABLET PO PRN (08:30)
[2020-11-19] MEDS ORDERED: oxyCODONE IR immediate release 5 MG PO PRN (09:00)
[2020-11-19] MEDS ORDERED: APIXABAN 5 MG TABLET PO SCH ×2 (09:00)
[2020-11-19] MEDS: APIXABAN 5 MG TABLET PO SCH ×2 (09:12→16:30)
[2020-11-19] MEDS: METHOCARBAMOL (500MG) 500 MG TABLET PO SCH ×3 (09:12→16:27)
[2020-11-19] MEDS: METFORMIN 500 MG TABLET PO SCH ×2 (09:13→16:28)
[2020-11-19] MEDS: LISINOPRIL (20MG) 20 MG TABLET PO SCH (09:13)
[2020-11-19] MEDS: AMLODIPINE BESYLATE 10 MG TABLET PO SCH (09:14)
[2020-11-19] MEDS: ASPIRIN 81 MG TAB.CHEW PO SCH (09:14)
[2020-11-19] MEDS: GABAPENTIN 100 MG CAPSULE PO SCH ×3 (09:14→16:28)
[2020-11-19] MEDS: RANOLAZINE 500 MG TAB.ER.12H PO SCH ×2 (09:14→16:27)
[2020-11-19] MEDS: CARVEDILOL 3.125 MG TABLET PO SCH ×2 (09:14→20:59)
--- NOTE | 2020-11-19 09:25 | NUR ---
Patient would like to add contacts of eople who might be updated on is status by phone: Diane Pina (sister) Pennie Hurtado (cousin) Mora Ellington (friend)
--- NOTE | 2020-11-19 10:20 | NUR ---
ORTHOSTATIC BP IN BED: HR 90; BP 144/110 SITTING: HR 85; BP 144/103 STANDING; HR 91; BP 128/85 TOLERATED WELL STABLE, ABLE TO AMBULATE
--- NOTE | 2020-11-19 11:53 | NUR ---
WOUND CARE CONSULT: PT PRESENTS WITH LONG TOENAILS, PRESENT ON ADMISSION.PT IS AMBULATORY AND CONTINENT. DR ALONZO NOTIFIED OF DPM CONSULT REQUEST. IN AGREEMENT WITH PLAN OF CARE.
[2020-11-19] MEDS ORDERED: ISOSORBIDE MONONITRATE (30MG) 30 MG TAB.SR.24H PO SCH (18:00)
[2020-11-19] MEDS ORDERED: ATORVASTATIN 10 MG TABLET PO SCH (18:00)
--- NOTE | 2020-11-19 19:23 | NUR ---
CLOSING NOTES STABLE, NO ACUTE CHANGES, MEDICATIONS GIVEN ENDORSE TO PM SHIFT RN FOR HIWOT
--- NOTE | 2020-11-19 20:00 | NUR ---
RN OPENING NOTES PATIENT PRESENT IN BED, A/OX4, ON ROOM AIR, SPO2 98%, NO SOB NOTED, DENIES PAIN, ON MONITOR TELE CONTROLLED A-FIB WITH PVC, HR OF 94, AMBULATORY, IV LINE PATENT AND FLUSHED ON R HAND G20, SAFETY MEASURES IN PLACE, BED LOCKED, IN LOWEST POSITION, HOB ELEVATED, CALL LIGHT IN REACH, WILL CONT TO MONITOR
[2020-11-19] MEDS ORDERED: TRAZODONE 50 MG TABLET PO SCH (22:00)
[2020-11-19] MEDS ORDERED: SIMVASTATIN 20 MG TABLET PO SCH (22:00)
[2020-11-19] MEDS ORDERED: SENNOSIDES 8.6 MG TABLET PO SCH (22:00)
[2020-11-20] VITALS: BP 132/85
[2020-11-20 03:22] VITALS: BP 132/85
[2020-11-20 04:00] VITALS: BP_SYST 132; BP_SYST 140; BP_DIAS 85; BP_DIAS 90
[2020-11-20 06:00] VITALS: BP_SYST 114; BP_SYST 128; BP_SYST 133; BP_DIAS 68; BP_DIAS 78; BP_DIAS 81
--- NOTE | 2020-11-20 06:42 | NUR ---
ORTHOSTATIC BP IN BED: HR 70; BP 133/81 SITTING: HR 97; BP 128/78 STANDING; HR 105; BP 114/68 TOLERATED WELL STABLE, ABLE TO AMBULATE
[2020-11-20 06:47] LABS: BASOPHILS % (AUTO) 0.5 % (0.0-2.0); EOSINOPHILS % (AUTO) 1.2 % (0.0-6.0); HEMATOCRIT 43 % (39-51); HEMOGLOBIN 14.3 g/dL (13.5-17.5); LYMPHOCYTES # (AUTO) 3.3 /CMM (0.8-4.8); LYMPHOCYTES % (AUTO) 34.1 % (20.0-44.0); MEAN CORPUSCULAR HGB CONC 33 g/dl (31.0-36.0); MEAN CORPUSCULAR VOLUME 93 fL (80-96); MONOCYTES # (AUTO) 1.1 /CMM (0.1-1.30); MONOCYTES % (AUTO) 11.4 % (2.0-12.0); NEUTROPHILS # (AUTO) 5.1 /CMM (1.8-8.9); NEUTROPHILS % (AUTO) 52.8 % (43.0-81.0); PLATELET COUNT (AUTO) 128 /CMM (150-450); RED BLOOD CELL COUNT(AUTO) 4.59 MIL/uL (4.5-6.0); WHITE BLOOD COUNT (AUTO) 9.6 K/uL (4.3-11.0)
--- NOTE | 2020-11-20 07:10 | NUR ---
RN OPENING NOTES RECEIVED PT IN BED, A/O X4. STABLE ON ROOM AIR, SATURATING @98%. NO SOB OR ANY DISTRESS. NO COMPLAINS OF PAIN. CONTROLLED A-FIB ON TELE MONITOR, HR AT 90s. AMBULATORY. IV ACCESS AT R HAND #20 INTACT, PATENT AND FLUSHED. SAFETY MEASURES IN PLACE. CALL LIGHT WITHIN REACH. BED LOCKED AND IN LOWEST POSITION WITH SIDE RAILS UP X2. WILL CONTINUE TO MONITOR.
[2020-11-20 07:24] LABS: CALCIUM, SERUM 8.9 mg/dL (8.5-10.1); CARBON DIOXIDE 26 mmol/L (21-32); CHLORIDE 104 mmol/L (98-107); CREATININE 1.1 mg/dL (0.6-1.3); GLUCOSE 142 mg/dL (74-106); MAGNESIUM 1.6 mg/dL (1.8-2.4); PHOSPHORUS 3.4 mg/dL (2.5-4.9); POTASSIUM 3.7 mmol/L (3.5-5.1); SODIUM SERUM 138 mmol/L (136-145); UREA NITROGEN, BLOOD 19 mg/dL (7-18)
[2020-11-20] MEDS ORDERED: PANTOPRAZOLE 40 MG TABLET.DR PO SCH (07:30)
[2020-11-20 08:00] VITALS: BP 127/86
[2020-11-20] MEDS: ASPIRIN 81 MG TAB.CHEW PO SCH (08:26)
[2020-11-20] MEDS: CARVEDILOL 3.125 MG TABLET PO SCH (08:27)
[2020-11-20] MEDS: RANOLAZINE 500 MG TAB.ER.12H PO SCH (08:27)
[2020-11-20] MEDS: METFORMIN 500 MG TABLET PO SCH (08:27)
[2020-11-20 08:28] VITALS: BP 127/86
[2020-11-20] MEDS: METHOCARBAMOL (500MG) 500 MG TABLET PO SCH (08:28)
[2020-11-20] MEDS: AMLODIPINE BESYLATE 10 MG TABLET PO SCH (08:28)
[2020-11-20] MEDS: LISINOPRIL (20MG) 20 MG TABLET PO SCH (08:28)
[2020-11-20] MEDS: GABAPENTIN 100 MG CAPSULE PO SCH (08:28)
[2020-11-20] MEDS: APIXABAN 5 MG TABLET PO SCH (08:34)
[2020-11-20] MEDS: Magnesium 1GM/D5W 100ML PREMIX 100 ML IV SCH ×2 (09:59→10:59)
--- NOTE | 2020-11-20 12:44 | NUR ---
RN CLOSING NOTES PT DISCHARGED, PROVIDED INSTRUCTIONS. VERBALIZED UNDERSTANDING. VACCINATIONS ALL UP TO DATE. PICTURE TAKEN FOR BOTH FEET, PLACED IN THE CHART. VS STABLE. NOT IN DISTRESS. NO PAIN REPORTED. SKIN IS INTACT. WENT HOME ACCOMPANIED BY FRIEND ELIUD VIA PRIVATE CAR.
== END 2020-11-20 12:36 | disposition home or self-care (01) | DRG 309 ==
LOC: ER 23:28 → TELE-TD 11-19 03:37 → MEDSG1 11-20 09:00
PROVIDERS: ADMIT Family Medicine; ATTEND Family Medicine
PROC: 0HBRXZZ Excision of Toe Nail, External Approach (ICD-10-PCS; principal; 2020-11-20)
DX: I48.0 Paroxysmal atrial fibrillation (principal); E87.1 Hypo-osmolality and hyponatremia; I10 Essential (primary) hypertension; E78.5 Hyperlipidemia, unspecified; Z95.2 Presence of prosthetic heart valve; E11.9 Type 2 diabetes mellitus without complications; Z79.01 Long term (current) use of anticoagulants; B35.1 Tinea unguium; D72.829 Elevated white blood cell count, unspecified; G89.29 Other chronic pain; I25.10 Atherosclerotic heart disease of native coronary artery without angina pectoris; K21.9 Gastro-esophageal reflux disease without esophagitis; K76.0 Fatty (change of) liver, not elsewhere classified; L60.2 Onychogryphosis; Z79.02 Long term (current) use of antithrombotics/antiplatelets; Z95.1 Presence of aortocoronary bypass graft; E86.1 Hypovolemia; E80.6 Other disorders of bilirubin metabolism; Z79.84 Long term (current) use of oral hypoglycemic drugs; M79.672 Pain in left foot; M79.671 Pain in right foot; K80.20 Calculus of gallbladder without cholecystitis without obstruction; Z20.822 Contact with and (suspected) exposure to COVID-19
CPT/HCPCS: 36415; 71045-TC; 76700-TC; 80048-TC; 80076-TC; 83735-TC; 84100-TC; 84484-TC; 85025-TC; 87081-TC; 93307-TC; 97116-TC; 97530-TC; C9803; G0378; J3475; J7050